=== PATIENT | female | born 1960 | race Two or more races ===

== ENCOUNTER 2017-12-15 21:28 | Inpatient (IN) | payer MEDICAID, OTHER ==
[~2017-12-15] VITALS: Ht 175.3 cm; Wt 163.3 kg
[~2017-12-15 21:28] MED LIST: ABILIFY20 MG ORAL; AMLODIPINE BESYL5 MG ORAL; ATORVASTATIN CA40 MG ORAL; FEROSUL325 M1 PO; FLUOXETINE HCL20 MG ORAL; LATUDA40 MG PO; LEVOTHYROXINE112 MCG ORAL; LEVOTHYROXINE75 MCG ORAL; LIPITOR40 MG ORAL; SERTRALINE HCL25 MG ORAL
[2017-12-15] MEDS ORDERED: Albuterol/Ipratropium 3ml neb HHN ONE (22:45)
[2017-12-15 23:28] LABS: HEMATOCRIT 36.9 % (37.0-47.0); HEMOGLOBIN 12.1 G/DL (12.0-16.0); MEAN CORPUSCULAR VOLUME 87 FL (80-99); PLATELET COUNT 67 K/UL (150-450); RED BLOOD COUNT 4.24 M/UL (4.20-5.40); RED CELL DISTRIBUTION WIDTH 13.8 % (11.6-14.8); WHITE BLOOD COUNT 9.7 K/UL (4.8-10.8)
[2017-12-16] VITALS (7 sets, daily range): BP systolic 121–149; BP diastolic 67–89
[2017-12-16] LABS: ANION GAP 4 mmol/L (5-15); BLOOD UREA NITROGEN 27 mg/dL (7-18); CALCIUM 8.5 MG/DL (8.5-10.1); CARBON DIOXIDE 32 MMOL/L (21-32); CHLORIDE 106 MMOL/L (98-107); CREATININE 0.9 MG/DL (0.55-1.30); SODIUM 142 MMOL/L (136-145)
[2017-12-16] MEDS ORDERED: Norco 5mg/325mg tab ORAL ONE
[2017-12-16 00:05] LABS: ALANINE AMINOTRANSFERASE 21 U/L (12-78); ALBUMIN/GLOBULIN RATIO 0.7 (1.0-2.7); ALKALINE PHOSPHATASE 115 U/L (46-116); ASPARTATE AMINO TRANSFERASE 22 U/L (15-37); BILIRUBIN,TOTAL 0.3 MG/DL (0.2-1.0)
--- NOTE | 2017-12-16 00:34 | Emergency Room Report ---
History of Present Illness General Chief Complaint: Lower Extremity Injury Source: Medical Record, EMS Present Illness HPI Patient is a 57-year-old female who presented after increased difficulty breathing and right leg pain. The patient noted have recent fall. She had prior history of morbid obesity. The patient had the been noted to have increased pain and right ankle. The patient had a prior history of psychiatric disease. She denies any numbness or tingling to her extremities. The pain is worse with movement. Allergies: Coded Allergies: No Known Allergies (Unverified , 11/01/15) Patient History Last Menstrual Period: n/a Reviewed Nursing Documentation: PMH: Agreed; PSxH: Agreed Nursing Documentation-PMH Hx Hypertension: Yes Hx Cancer: No Hx Gastrointestinal Problems: No History Of Psychiatric Problem: Yes Hx Neurological Problems: No Review of Systems All Other Systems: negative except mentioned in HPI Physical Exam Vital Signs Date Time Temp Pulse Resp B/P (MAP) Pulse Ox O2 Delivery O2 Flow Rate FiO2 12/15/17 21:24 97.9 68 16 126/77 92 Nasal Cannula 3.0 97.9 12/15/17 23:12 32 Sp02 EP Interpretation: reviewed, normal General Appearance: normal inspection, alert, GCS 15, obese, Chronically Ill Head: atraumatic ENT: normal ENT inspection, hearing grossly normal, normal voice Neck: normal inspection, full range of motion, supple, no bony tend Respiratory: normal inspection, no retraction, wheezing Cardiovascular #1: regular rate, rhythm, edema Gastrointestinal: normal inspection, normal bowel sounds, non tender, soft, no guarding, no hernia Genitourinary: no CVA tenderness Musculoskeletal: normal inspection, back normal, normal range of motion Neurologic: normal inspection, alert, oriented x3, responsive, inbound sales advisor III-XII nml as tested, speech normal Psychiatric: normal inspection, judgement/insight normal, mood/affect normal Skin: normal inspection, normal color, no rash Medical Decision Making Diagnostic Impression: Primary Impression: COPD (chronic obstructive pulmonary disease) Additional Impressions: Morbid obesity Fibula fracture Psychiatric disorder ER Course Patient presented for fall as well as difficulty breathing. Patient was noted to have right ankle pain. Differential diagnoses included was not limited to myocardial infarction, COPD, sleep apnea, right heart failure among others. Because of complexity of patient's case laboratory testing and imaging studies were ordered. The x-ray imaging of the right ankle 3 views interpreted by me showed minimally displaced right fibular fracture patient was placed in a splint. Patient was given oral pain medications.Patient given breathing treatments for the moderate difficulty breathing.The patient was noted to have O2 saturation of 92% on [address] Jh Coffman was contacted for inpatient management due to panel physician. Dr. Robb Wallace was contacted for Orthopedic consult. Patient fracture appears to be stable after splinting. Patient appears to be neurovascularly intact. Labs Test 12/15/17 23:17 White Blood Count 9.7 K/UL (4.8-10.8) Red Blood Count 4.24 M/UL (4.20-5.40) Hemoglobin 12.1 G/DL (12.0-16.0) Hematocrit 36.9 % (37.0-47.0) Mean Corpuscular Volume 87 FL (80-99) Mean Corpuscular Hemoglobin 28.5 PG (27.0-31.0) Mean Corpuscular Hemoglobin Concent 32.8 G/DL (32.0-36.0) Red Cell Distribution Width 13.8 % (11.6-14.8) Platelet Count 67 K/UL (150-450) Mean Platelet Volume 8.4 FL (6.5-10.1) Neutrophils (%) (Auto) % (45.0-75.0) Lymphocytes (%) (Auto) % (20.0-45.0) Monocytes (%) (Auto) % (1.0-10.0) Eosinophils (%) (Auto) % (0.0-3.0) Basophils (%) (Auto) % (0.0-2.0) Prothrombin Time 10.5 SEC (9.30-11.50) Prothromb Time International Ratio 1.0 (0.9-1.1) Activated Partial Thromboplast Time 149 SEC (23-33) Sodium Level 142 MMOL/L (136-145) Potassium Level 4.0 MMOL/L (3.5-5.1) Chloride Level 106 MMOL/L (98-107) Carbon Dioxide Level 32 MMOL/L (21-32) Anion Gap 4 mmol/L (5-15) Blood Urea Nitrogen 27 mg/dL (7-18) Creatinine 0.9 MG/DL (0.55-1.30) Estimat Glomerular Filtration Rate > 60 mL/min (>60) Glucose Level 89 MG/DL (74-106) Calcium Level 8.5 MG/DL (8.5-10.1) Total Bilirubin 0.3 MG/DL (0.2-1.0) Aspartate Amino Transf (AST/SGOT) 22 U/L (15-37) Alanine Aminotransferase (ALT/SGPT) 21 U/L (12-78) Alkaline Phosphatase 115 U/L (46-116) Total Protein 7.6 G/DL (6.4-8.2) Albumin 3.0 G/DL (3.4-5.0) Globulin 4.6 g/dL Albumin/Globulin Ratio 0.7 (1.0-2.7) Last Vital Signs Date Time Temp Pulse Resp B/P (MAP) Pulse Ox O2 Delivery O2 Flow Rate FiO2 12/15/17 23:22 68 18 97 Nasal Cannula 3.0 32 12/15/17 21:24 97.9 126/77 97.9 Status: unchanged Disposition: ADMITTED INPATIENT Condition: Stable Referrals: ROBB CHAMBERLAIN (PCP) Niko Garcia MD Dec 16, 2017 00:33
[2017-12-16] MEDS ORDERED: AMLODIPINE BESY10 MG ORAL (01:19)
[2017-12-16] MEDS ORDERED: SYNTHROID100 MCG ORAL (01:19)
[2017-12-16] MEDS ORDERED: RISPERDAL2 MG ORAL (01:19)
[2017-12-16] MEDS ORDERED: Albuterol/Ipratropium 3ml neb HHN PRN (07:00)
[2017-12-16] MEDS ORDERED: ARIPiprazole 10mg tab ORAL SCH (09:00)
[2017-12-16] MEDS: Norco 5mg/325mg tab ORAL PRN ×3 (09:17→22:08)
--- NOTE | 2017-12-16 11:10 | Diagnostic Imaging Report ---
Indication: Shortness of breath Technique: XRAY Chest 1v Comparison: 02/17/2017 FINDINGS/IMPRESSION: Severely limited exam which is markedly underpenetrated. Exam is almost nondiagnostic. Cardiomegaly appears stable. Question pulmonary vascular congestion/mild fluid overload. Repeat exam recommended. Study obtained via the emergency department however patient admitted to the hospital at time of dictation of the final report.
--- NOTE | 2017-12-16 11:19 | Diagnostic Imaging Report ---
Indication: Pain Technique: XRAY Ankle Compl Min 3v R Comparison: None Findings: There is an acute, mildly comminuted and mildly displaced fracture of the distal fibula. There is a subtle lucency of the medial aspect of the distal tibia seen only on frontal view without associated cortical break. This is likely artifactual. Ankle mortise appears intact on these nonstress views. There is bimalleolar soft tissue swelling, more pronounced laterally. No radio opaque foreign body identified. No appreciable ankle joint effusion. There are small plantar and dorsal calcaneal enthesophytes. IMPRESSION: Acute fracture of the distal fibula. Small lucency through the medial malleolus seen only on frontal view without associated definite cortical break, possibly artifact or very subtle nondisplaced fracture. Consider CT. Study obtained via the emergency department however patient admitted to the hospital at time of dictation of the final report. Findings of the final report discussed with the patient's treating nurse on 3E. via telephone conversation approximately 11:00 on 12/16/2017.
--- NOTE | 2017-12-16 13:31 | Consultation ---
Consult Note Consult Note Patient seen and evaluated. Right Ankle fracture with none displaced fibular fracture. In a well padded splint. None surgical treatment, cast immobilization for 4 weeks. Please arrange for follow up with [place] care physician for ankle fracture on outpatient bases. Current splint well fitted. Thank you Yo Wallace MD Dec 16, 2017 13:31
[2017-12-16] MEDS: Sertraline 50mg tab ORAL SCH (14:14)
--- NOTE | 2017-12-16 14:26 | Consultation ---
History of Present Illness General Date patient seen: Dec 17, 2017 Chief Complaint: Lower Extremity Injury Present Illness HPI 57-year-old female with morbid obesity, COPD, psychiatric disorder who presented after increased difficulty breathing and right leg pain after a recent fall. She denies any numbness or tingling to her extremities. The pain is worse with movement. she was diagnosed to have acute fibular fracture. she also had increasing shortness of breath Allergies: Coded Allergies: No Known Allergies (Unverified , 11/01/15) Medication History Scheduled Amlodipine Besylate* (Amlodipine Besylate*), 5 MG ORAL DAILY, (Reported) Amlodipine Besylate* (Amlodipine Besylate*), 5 MG ORAL DAILY, (Reported) Amlodipine Besylate* (Amlodipine Besylate*), 10 MG ORAL DAILY, (Reported) Aripiprazole* (Abilify*), 30 MG ORAL DAILY, (Reported) Aripiprazole* (Abilify*), 20 MG ORAL DAILY, (Reported) Aripiprazole* (Abilify*), 20 MG ORAL DAILY, (Reported) Atorvastatin Calcium* (Lipitor*), 40 MG ORAL BEDTIME, (Reported) Atorvastatin Calcium* (Atorvastatin Calcium*), 40 MG ORAL BEDTIME, (Reported) Ferrous Sulfate (Ferosul), 325 MG PO DAILY, (Reported) Fluoxetine Hcl* (Fluoxetine Hcl*), 20 MG ORAL DAILY, (Reported) Fluoxetine Hcl* (Fluoxetine Hcl*), 20 MG ORAL DAILY, (Reported) Levothyroxine Sodium* (Levothyroxine Sodium*), 75 MCG ORAL DAILY, (Reported) Levothyroxine Sodium* (Levothyroxine Sodium*), 100 MCG ORAL DAILY, (Reported) Levothyroxine Sodium* (Synthroid*), 200 MCG ORAL DAILY, (Reported) Risperidone* (Risperdal*), 2 MG ORAL DAILY, (Reported) Sertraline Hcl* (Sertraline Hcl*), 100 MG ORAL DAILY, (Reported) Miscellaneous Medications Lurasidone Hcl (Latuda), 40 MG PO, (Reported) Patient History Healthcare decision maker Resuscitation status Full Code Advanced Directive on File Past Medical/Surgical History Past Medical/Surgical History: (1) HTN (hypertension) (2) Hypothyroidism (3) Depression (4) Bipolar disorder (5) Psychiatric disorder (6) COPD (chronic obstructive pulmonary disease) Review of Systems All Other Systems: negative except mentioned in HPI Physical Exam General Appearance: WD/WN, no apparent distress Lines, tubes and drains: central line Neck: non-tender, normal alignment Respiratory/Chest: chest wall non-tender, lungs clear, decreased breath sounds Cardiovascular/Chest: normal peripheral pulses, normal rate Abdomen: normal bowel sounds Genitourinary/Rectal: normal genital exam Extremities: normal range of motion Last 24 Hour Vital Signs Date Time Temp Pulse Resp B/P (MAP) Pulse Ox O2 Delivery O2 Flow Rate FiO2 12/16/17 12:00 98.5 70 19 128/74 95 Nasal Cannula 2.0 98.5 12/16/17 10:16 97.9 12/16/17 09:15 66 140/67 12/16/17 07:51 97.9 66 19 140/67 96 Nasal Cannula 2.0 97.9 12/16/17 04:30 98.1 84 20 122/77 94 Nasal Cannula 2.0 98.1 12/16/17 02:20 97.9 84 20 149/80 95 Nasal Cannula 2.0 97.9 12/16/17 02:06 97.9 90 18 132/89 97 Nasal Cannula 3.0 32 97.9 12/16/17 01:07 97.9 90 18 132/89 97 Nasal Cannula 3.0 32 97.9 12/15/17 23:22 68 18 97 Nasal Cannula 3.0 32 12/15/17 23:12 70 18 94 Nasal Cannula 3.0 32 12/15/17 23:12 70 18 Nasal Cannula 3.0 32 12/15/17 21:24 97.9 68 16 126/77 92 Nasal Cannula 3.0 97.9 Intake and Output 12/15/17 12/16/17 18:59 06:59 Intake Total 200 ml Balance 200 ml Intake Oral 200 ml # Voids 2 Laboratory Tests Test 12/15/17 23:17 White Blood Count 9.7 K/UL (4.8-10.8) Red Blood Count 4.24 M/UL (4.20-5.40) Hemoglobin 12.1 G/DL (12.0-16.0) Hematocrit 36.9 % (37.0-47.0) L Mean Corpuscular Volume 87 FL (80-99) Mean Corpuscular Hemoglobin 28.5 PG (27.0-31.0) Mean Corpuscular Hemoglobin Concent 32.8 G/DL (32.0-36.0) Red Cell Distribution Width 13.8 % (11.6-14.8) Platelet Count 67 K/UL (150-450) L Mean Platelet Volume 8.4 FL (6.5-10.1) Neutrophils (%) (Auto) % (45.0-75.0) Lymphocytes (%) (Auto) % (20.0-45.0) Monocytes (%) (Auto) % (1.0-10.0) Eosinophils (%) (Auto) % (0.0-3.0) Basophils (%) (Auto) % (0.0-2.0) Prothrombin Time 10.5 SEC (9.30-11.50) Prothromb Time International Ratio 1.0 (0.9-1.1) Activated Partial Thromboplast Time 149 SEC (23-33) H Sodium Level 142 MMOL/L (136-145) Potassium Level 4.0 MMOL/L (3.5-5.1) Chloride Level 106 MMOL/L (98-107) Carbon Dioxide Level 32 MMOL/L (21-32) Anion Gap 4 mmol/L (5-15) L Blood Urea Nitrogen 27 mg/dL (7-18) H Creatinine 0.9 MG/DL (0.55-1.30) Estimat Glomerular Filtration Rate > 60 mL/min (>60) Glucose Level 89 MG/DL (74-106) Calcium Level 8.5 MG/DL (8.5-10.1) Total Bilirubin 0.3 MG/DL (0.2-1.0) Aspartate Amino Transf (AST/SGOT) 22 U/L (15-37) Alanine Aminotransferase (ALT/SGPT) 21 U/L (12-78) Alkaline Phosphatase 115 U/L (46-116) Total Protein 7.6 G/DL (6.4-8.2) Albumin 3.0 G/DL (3.4-5.0) L Globulin 4.6 g/dL Albumin/Globulin Ratio 0.7 (1.0-2.7) L Height (Feet): 5 Height (Inches): 9.00 Weight (Pounds): 360 Medications Current Medications Medications (Trade) Dose Ordered Sig/Harish Route PRN Reason Start Time Stop Time Status Last Admin Dose Admin Acetaminophen (Tylenol) 650 mg Q6H PRN ORAL Mild Pain/Temp > 100.5 12/16/17 07:00 01/15/18 06:59 Acetaminophen/ Hydrocodone Bitart ([place] 5/325) 1 tab Q4H PRN ORAL Moderate Pain (Pain Scale 4-6) 12/16/17 07:00 12/23/17 06:59 12/16/17 09:17 Albuterol/ Ipratropium (Albuterol/ Ipratropium) 3 ml Q4H PRN HHN Shortness of Breath 12/16/17 07:00 12/21/17 06:59 Amlodipine Besylate (Norvasc) 5 mg DAILY ORAL 12/16/17 09:00 01/15/18 08:59 12/16/17 09:15 Aripiprazole (Abilify) 20 mg DAILY ORAL 12/16/17 09:00 01/15/18 08:59 12/16/17 09:15 Atorvastatin Calcium (Lipitor) 40 mg BEDTIME ORAL 12/16/17 21:00 01/15/18 20:59 Levothyroxine Sodium (Synthroid) 75 mcg ACBREAKFAST ORAL 12/17/17 06:30 01/16/18 06:29 Morphine Sulfate (Morphine Sulfate) 4 mg Q4H PRN IVP Severe Pain (Pain Scale 7-10) 12/16/17 07:00 12/23/17 06:59 Ondansetron HCl (Zofran) 4 mg Q4H PRN IVP Nausea & Vomiting 12/16/17 07:00 01/15/18 06:59 Risperidone (RisperDAL) 2 mg DAILY ORAL 12/16/17 09:00 01/15/18 08:59 12/16/17 09:15 Sertraline HCl (Zoloft) 100 mg DAILY ORAL 12/16/17 13:00 01/15/18 12:59 12/16/17 14:14 Assessment/Plan Problem List: (1) COPD (chronic obstructive pulmonary disease) ICD Codes: J44.9 - Chronic obstructive pulmonary disease, unspecified SNOMED: 86866851 (2) Fibula fracture ICD Codes: S82.409A - Unspecified fracture of shaft of unspecified fibula, initial encounter for closed fracture SNOMED: 54815543 (3) Morbid obesity ICD Codes: E66.01 - Morbid (severe) obesity due to excess calories SNOMED: 789585082 (4) Psychiatric disorder ICD Codes: F99 - Mental disorder, not otherwise specified SNOMED: 95059162, 727681308 (5) Lives in assisted living facility ICD Codes: Z59.3 - Problems related to living in residential institution SNOMED: 709418018 Assessment/Plan respiratory treatment titrate fio2 to sat of 92% ortho f/u dvt prophylaxis Regla Carlin MD Dec 16, 2017 14:25
--- NOTE | 2017-12-16 16:38 | Consultation ---
History of Present Illness General Date patient seen: Dec 16, 2017 Chief Complaint: Lower Extremity Injury Present Illness HPI 57-year-old female, with hx of depression and schizophrenia who presented after increasing difficulty breathing and right leg pain. The pt c/o sob. The pt is calm and cooperative and has no behavioral issues. the pt is depressed and anxious. the pt does not endorse psychotic sxs. the pt is Sammar[place] speaking. Allergies: Coded Allergies: No Known Allergies (Unverified , 11/01/15) Medication History Scheduled Amlodipine Besylate* (Amlodipine Besylate*), 5 MG ORAL DAILY, (Reported) Amlodipine Besylate* (Amlodipine Besylate*), 5 MG ORAL DAILY, (Reported) Amlodipine Besylate* (Amlodipine Besylate*), 10 MG ORAL DAILY, (Reported) Aripiprazole* (Abilify*), 30 MG ORAL DAILY, (Reported) Aripiprazole* (Abilify*), 20 MG ORAL DAILY, (Reported) Aripiprazole* (Abilify*), 20 MG ORAL DAILY, (Reported) Atorvastatin Calcium* (Lipitor*), 40 MG ORAL BEDTIME, (Reported) Atorvastatin Calcium* (Atorvastatin Calcium*), 40 MG ORAL BEDTIME, (Reported) Ferrous Sulfate (Ferosul), 325 MG PO DAILY, (Reported) Fluoxetine Hcl* (Fluoxetine Hcl*), 20 MG ORAL DAILY, (Reported) Fluoxetine Hcl* (Fluoxetine Hcl*), 20 MG ORAL DAILY, (Reported) Levothyroxine Sodium* (Levothyroxine Sodium*), 75 MCG ORAL DAILY, (Reported) Levothyroxine Sodium* (Levothyroxine Sodium*), 100 MCG ORAL DAILY, (Reported) Levothyroxine Sodium* (Synthroid*), 200 MCG ORAL DAILY, (Reported) Risperidone* (Risperdal*), 2 MG ORAL DAILY, (Reported) Sertraline Hcl* (Sertraline Hcl*), 100 MG ORAL DAILY, (Reported) Miscellaneous Medications Lurasidone Hcl (Latuda), 40 MG PO, (Reported) Patient History Limited by: medical condition History Provided By: Patient, Medical Record, PMD Healthcare decision maker Resuscitation status Full Code Advanced Directive on File Past Medical/Surgical History Past Medical/Surgical History: (1) Abdominal pain (2) Bipolar disorder (3) Depression (4) Hypothyroidism (5) HTN (hypertension) (6) HLD (hyperlipidemia) (7) Atypical chest pain (8) COPD (chronic obstructive pulmonary disease) (9) Morbid obesity (10) Psychiatric disorder (11) Fibula fracture Review of Systems Psychiatric: Reports: prior hx, anxiety, depressed feelings, emotional problems Physical Exam General Appearance: no apparent distress, alert, obese Neurologic: oriented x 3, responsive, depressed affect Last 24 Hour Vital Signs Date Time Temp Pulse Resp B/P (MAP) Pulse Ox O2 Delivery O2 Flow Rate FiO2 12/16/17 16:00 97.9 74 18 127/75 94 Nasal Cannula 2.0 97.9 12/16/17 12:00 98.5 70 19 128/74 95 Nasal Cannula 2.0 98.5 12/16/17 10:16 97.9 12/16/17 09:15 66 140/67 12/16/17 07:51 97.9 66 19 140/67 96 Nasal Cannula 2.0 97.9 12/16/17 04:30 98.1 84 20 122/77 94 Nasal Cannula 2.0 98.1 12/16/17 02:20 97.9 84 20 149/80 95 Nasal Cannula 2.0 97.9 12/16/17 02:06 97.9 90 18 132/89 97 Nasal Cannula 3.0 32 97.9 12/16/17 01:07 97.9 90 18 132/89 97 Nasal Cannula 3.0 32 97.9 12/15/17 23:22 68 18 97 Nasal Cannula 3.0 32 12/15/17 23:12 70 18 94 Nasal Cannula 3.0 32 12/15/17 23:12 70 18 Nasal Cannula 3.0 32 12/15/17 21:24 97.9 68 16 126/77 92 Nasal Cannula 3.0 97.9 Intake and Output 12/15/17 12/16/17 19:00 07:00 Intake Total 200 ml Balance 200 ml Intake Oral 200 ml # Voids 2 Laboratory Tests Test 12/15/17 23:17 White Blood Count 9.7 K/UL (4.8-10.8) Red Blood Count 4.24 M/UL (4.20-5.40) Hemoglobin 12.1 G/DL (12.0-16.0) Hematocrit 36.9 % (37.0-47.0) L Mean Corpuscular Volume 87 FL (80-99) Mean Corpuscular Hemoglobin 28.5 PG (27.0-31.0) Mean Corpuscular Hemoglobin Concent 32.8 G/DL (32.0-36.0) Red Cell Distribution Width 13.8 % (11.6-14.8) Platelet Count 67 K/UL (150-450) L Mean Platelet Volume 8.4 FL (6.5-10.1) Neutrophils (%) (Auto) % (45.0-75.0) Lymphocytes (%) (Auto) % (20.0-45.0) Monocytes (%) (Auto) % (1.0-10.0) Eosinophils (%) (Auto) % (0.0-3.0) Basophils (%) (Auto) % (0.0-2.0) Prothrombin Time 10.5 SEC (9.30-11.50) Prothromb Time International Ratio 1.0 (0.9-1.1) Activated Partial Thromboplast Time 149 SEC (23-33) H Sodium Level 142 MMOL/L (136-145) Potassium Level 4.0 MMOL/L (3.5-5.1) Chloride Level 106 MMOL/L (98-107) Carbon Dioxide Level 32 MMOL/L (21-32) Anion Gap 4 mmol/L (5-15) L Blood Urea Nitrogen 27 mg/dL (7-18) H Creatinine 0.9 MG/DL (0.55-1.30) Estimat Glomerular Filtration Rate > 60 mL/min (>60) Glucose Level 89 MG/DL (74-106) Calcium Level 8.5 MG/DL (8.5-10.1) Total Bilirubin 0.3 MG/DL (0.2-1.0) Aspartate Amino Transf (AST/SGOT) 22 U/L (15-37) Alanine Aminotransferase (ALT/SGPT) 21 U/L (12-78) Alkaline Phosphatase 115 U/L (46-116) Total Protein 7.6 G/DL (6.4-8.2) Albumin 3.0 G/DL (3.4-5.0) L Globulin 4.6 g/dL Albumin/Globulin Ratio 0.7 (1.0-2.7) L Height (Feet): 5 Height (Inches): 9.00 Weight (Pounds): 360 Medications Current Medications Medications (Trade) Dose Ordered Sig/Harish Route PRN Reason Start Time Stop Time Status Last Admin Dose Admin Acetaminophen (Tylenol) 650 mg Q6H PRN ORAL Mild Pain/Temp > 100.5 12/16/17 07:00 01/15/18 06:59 Acetaminophen/ Hydrocodone Bitart ([place] 5/325) 1 tab Q4H PRN ORAL Moderate Pain (Pain Scale 4-6) 12/16/17 07:00 12/23/17 06:59 12/16/17 09:17 Albuterol/ Ipratropium (Albuterol/ Ipratropium) 3 ml Q4H PRN HHN Shortness of Breath 12/16/17 07:00 12/21/17 06:59 Amlodipine Besylate (Norvasc) 5 mg DAILY ORAL 12/16/17 09:00 01/15/18 08:59 12/16/17 09:15 Aripiprazole (Abilify) 20 mg DAILY ORAL 12/16/17 09:00 01/15/18 08:59 12/16/17 09:15 Atorvastatin Calcium (Lipitor) 40 mg BEDTIME ORAL 12/16/17 21:00 01/15/18 20:59 Levothyroxine Sodium (Synthroid) 75 mcg ACBREAKFAST ORAL 12/17/17 06:30 01/16/18 06:29 Morphine Sulfate (Morphine Sulfate) 4 mg Q4H PRN IVP Severe Pain (Pain Scale 7-10) 12/16/17 07:00 12/23/17 06:59 Ondansetron HCl (Zofran) 4 mg Q4H PRN IVP Nausea & Vomiting 12/16/17 07:00 01/15/18 06:59 Risperidone (RisperDAL) 2 mg DAILY ORAL 12/16/17 09:00 01/15/18 08:59 12/16/17 09:15 Sertraline HCl (Zoloft) 100 mg DAILY ORAL 12/16/17 13:00 01/15/18 12:59 12/16/17 14:14 Assessment/Plan Status: stable Assessment/Plan Bipolar d/o schizophrenia by hx dc Abilify cont zoloft pt was provided ro/Kalpana Hummel MD Dec 16, 2017 16:38
--- NOTE | 2017-12-16 16:45 | Consultation ---
DATE OF CONSULTATION: 12/16/2017 ORTHOPEDIC CONSULTATION CONSULTING PHYSICIAN: Yo Wallace M.D. REQUESTING PHYSICIAN: Jh Coffman M.D. REASON FOR CONSULTATION: Right ankle fracture. BRIEF HISTORY: The patient is a 57-year-old female, who presented after increasing difficulty breathing and right leg pain. She was noted to have a recent fall and she has morbid obesity. She was admitted to the hospital apparently due to coagulopathy and shortness of breath. X-rays of the right ankle showed a minimally displaced fibular fracture. Orthopedic consultation was obtained. PAST MEDICAL HISTORY: Significant for history of COPD, morbid obesity, psychiatric disorder, possible coagulopathy. PAST SURGICAL HISTORY: None available. MEDICATIONS: Please see chart. ALLERGIES: No known drug allergies. SOCIAL HISTORY: She has history of psychiatric issues. She was ambulatory prior to this fall. REVIEW OF SYSTEMS: Noncontributory. PHYSICAL EXAMINATION: GENERAL: Examination of the patient today reveals she is a pleasant lady. She is in bed on 3 L nasal cannula oxygen. EXTREMITIES: Examination of her ankle revealed that she has got well-padded splint. She is able to wiggle her toes. Splint is well padded. There is no neurological compromise at this point. X-RAYS: X-ray of the right ankle was reviewed. There is a spiral fibular fracture which is minimally displaced. The mortise appears to be intact. IMPRESSION: Right fibular fracture with intact mortise, isolated, with minimal displacement and no shortening. PLAN: At this time, I had discussion with the patient and explained to her my findings. I recommend nonoperative treatment in a splint for about a week and then cast immobilization for 3 to 4 weeks after. At this time, her medical condition is more urgent and this is managed by Dr. Coffman and his team. The patient can be discharged and followed up as an outpatient basis with her [facility] [place] physician for further treatment. There is no need for surgery for this patient at this time. Thank you for allowing me to participate in the care of this patient. Yo Wallace M.D. DR: Floyd JOB#: [id number] CC: JEF
--- NOTE | 2017-12-16 18:00 | History and Physical Report ---
DATE OF ADMISSION: 12/15/2017 CHIEF COMPLAINT: The patient is a 57-year-old female, who presents with chief complaint of right leg pain. HISTORY OF PRESENT ILLNESS: The patient is a resident of [facility]. The patient apparently fell a couple weeks ago at the facility. The patient has had increasing pain of the right lower leg. The patient also has shortness of breath. The patient presented to [facility] emergency room. The patient was found to have nondisplaced right fibular fracture distally. The patient is admitted with right distal fibular fracture. PAST MEDICAL HISTORY: Significant for 1. Hypertension. 2. Hypercholesterolemia. 3. Hypothyroidism. 4. Bipolar depression. 5. Obesity. PAST SURGICAL HISTORY: The patient denies. CURRENT MEDICATIONS: 1. Atorvastatin 40 mg p.o. daily. 2. Amlodipine 10 mg p.o. daily. 3. Levoxyl 200 mcg p.o. daily. 4. Risperdal 2 mg p.o. every evening. 5. Latuda 40 mg p.o. at bedtime. 6. Abilify 20 mg p.o. at bedtime. 7. Zoloft 100 mg p.o. daily. ALLERGIES: No known drug allergies. SOCIAL HISTORY: The patient is single. The patient denies tobacco or alcohol use. REVIEW OF SYSTEMS: CONSTITUTIONAL: The patient denies weight loss or weight gain. The patient denies fevers or chills. HEENT: The patient denies ear or throat pain. The patient denies headache. CARDIOVASCULAR: The patient denies palpitations or chest pain. CHEST: The patient denies wheezing or shortness of breath. ABDOMEN: The patient denies nausea, vomiting, diarrhea, or constipation. GENITOURINARY: The patient denies dysuria or increased frequency of urination. NEUROMUSCULAR: The patient complains of right lower leg pain as above. The patient denies seizures or generalized weakness. PHYSICAL EXAMINATION: GENERAL: The patient is a well-developed and well-nourished obese female, in no apparent distress. VITAL SIGNS: Temperature 97.9 degrees, respirations 20, pulse 84, and blood pressure 149/80. HEENT: Eyes, pupils equal and responsive to light and accommodation. Extraocular movements are intact. NECK: Supple without lymphadenopathy. CHEST: Lungs are clear to auscultation bilaterally without wheezes or rales. CARDIOVASCULAR: Regular rhythm and rate. S1 and S2 are normal without murmurs, rubs, or gallops. ABDOMEN: Soft, nontender, nondistended. Positive bowel sounds. No evidence of hepatosplenomegaly. Currently, no rebound or guarding noted. EXTREMITIES: Negative for clubbing, cyanosis, or edema. RECTAL/GENITAL: Refused. NEUROLOGIC: Cranial nerves II through XII are grossly intact without focal deficits. Motor strength is 5/5 bilaterally. Deep tendon reflexes are 2+ plantar. LABORATORY AND DIAGNOSTIC DATA: WBC 9.7, hemoglobin 12.1, hematocrit 36.9 and platelets 67,000. Sodium 142, potassium 4.0, chloride 106, CO2 32, BUN 27, creatinine 0.9, and glucose 89. X-ray of the right ankle revealed nondisplaced fracture of the distal fibula. ASSESSMENT: This is a 57-year-old female 1. Nondisplaced fracture of the right fibula. 2. Hypertension. 3. Hypercholesterolemia. 4. Hypothyroidism. 5. Bipolar depression. 6. Obesity. TREATMENT: 1. Nondisplaced fracture of the right fibula. An Orthopedic consultation has been with Dr. Wallace. We will follow recommendations. The patient is currently on a soft cast. 2. Hypertension. Continue amlodipine as above. 3. Hypercholesteremia. Continue Lipitor as above. 4. Hypothyroidism. Continue Synthroid as above. 5. Bipolar depression. Continue Abilify, Risperdal, Latuda and Zoloft as above. 6. Morbid obesity. Dyllan Johnson M.D. DR: JUSTINE JOB#: [id number] CC:
[2017-12-16] MEDS: Atorvastatin 20mg tab ORAL SCH (21:15)
--- NOTE | 2017-12-16 22:15 | Consultation ---
DATE OF CONSULTATION: 12/16/2017 HEMATOLOGY/ONCOLOGY CONSULTATION CONSULTING PHYSICIAN: Leroy Pedraza M.D. REQUESTING PHYSICIAN: Jh Coffman M.D. REASON FOR CONSULTATION: Evaluation of new onset thrombocytopenia. IDENTIFYING DATA: Dear Dr. Coffman, The patient is a pleasant 57-year-old female with past medical history significant for COPD, morbid obesity, possible coagulopathy, INR, which is noted to be 5 and PTT of 129. The patient has a history, which is significant for difficulty breathing, noted to have a recent fall, morbid obesity, admitted to the hospital for evaluation of coagulopathy. X-ray of the right ankle showed minimally displaced ankle fracture. Orthopedic Surgery was consulted for further evaluation and treatment. The patient to be followed up as an outpatient for further treatment. No need for surgery at this time per Orthopedic Surgery. Hematology Service was consulted for evaluation and treatment. PAST MEDICAL HISTORY: COPD, morbid obesity, psychiatric disorder, and possible coagulopathy. PAST SURGICAL HISTORY: None reported. MEDICATIONS: Reviewed. ALLERGIES: No known drug allergies. SOCIAL HISTORY: No alcohol, tobacco, or illicit drug use. FAMILY HISTORY: Noncontributory. REVIEW OF SYSTEMS: CONSTITUTIONAL: No fevers, chills, or night sweats. SKIN: No rashes, bumps, or itching. HEENT: No headache, hearing or vision changes. BREASTS: No lumps, pain, or discharge. PULMONARY: No cough, sputum, or shortness of breath. GASTROINTESTINAL: No nausea, vomiting, or diarrhea. GENITOURINARY: No dysuria, frequency, or urgency. MUSCULOSKELETAL: No muscle, joint swelling, or trauma. PHYSICAL EXAMINATION: VITAL SIGNS: Reviewed. GENERAL: No distress. PULMONARY: Decreased breath sounds. CARDIOVASCULAR: Regular rate. No S3 or S4. ABDOMEN: Soft, nontender, and nondistended. EXTREMITIES: A 1+ edema. LABORATORY AND DIAGNOSTIC DATA: Labs have been reviewed. Platelet count 67,000. PTT of 149. ASSESSMENT AND RECOMMENDATION: 1. Coagulopathy. PTT of 149. We need to check whether this is accurate. PTT has been ordered. study has been ordered as well, potentially it is underlying vitamin K insufficiency. 2. Thrombocytopenia. At this time, we need to platelet count due to reactive process in addition to pseudothrombocytopenia. Obtain hepatitis panel, HIV, and ultrasound of the abdomen. 3. Hypertension. Systolic blood pressure goal is less than 140. 4. Ankle fracture. Outpatient management. The patient has HMO insurance. 5. Azotemia, dehydration. I appreciate the consultation. Leroy Pedraza M.D. DR: SAUL JOB#: [id number] CC:
[2017-12-17] VITALS: BP 146/79
[2017-12-17 04:00] VITALS: BP 128/70
[2017-12-17] MEDS: Norco 5mg/325mg tab ORAL PRN ×2 (07:22→15:25)
[2017-12-17 07:23] LABS: ALANINE AMINOTRANSFERASE 16 U/L (12-78); ALBUMIN 2.6 G/DL (3.4-5.0); ALBUMIN/GLOBULIN RATIO 0.6 (1.0-2.7); ALKALINE PHOSPHATASE 95 U/L (46-116); ANION GAP 3 mmol/L (5-15); ASPARTATE AMINO TRANSFERASE 15 U/L (15-37); BILIRUBIN,TOTAL 0.3 MG/DL (0.2-1.0); BLOOD UREA NITROGEN 17 mg/dL (7-18); CALCIUM 8.2 MG/DL (8.5-10.1); CARBON DIOXIDE 33 MMOL/L (21-32); CHLORIDE 106 MMOL/L (98-107); CREATININE 0.7 MG/DL (0.55-1.30); PHOSPHORUS 3.4 MG/DL (2.5-4.9); POTASSIUM 4.1 MMOL/L (3.5-5.1); SODIUM 142 MMOL/L (136-145)
[2017-12-17 07:25] LABS: BASOPHILS % (AUTO) 1.3 % (0.0-2.0); EOSINOPHILS % (AUTO) 1.4 % (0.0-3.0); LYMPHOCYTES % (AUTO) 24.7 % (20.0-45.0); MEAN CORPUSCULAR VOLUME 88 FL (80-99); NEUTROPHILS % (AUTO) 66.6 % (45.0-75.0); PLATELET COUNT 154 K/UL (150-450); RED BLOOD COUNT 4.18 M/UL (4.20-5.40); RED CELL DISTRIBUTION WIDTH 13.7 % (11.6-14.8); WHITE BLOOD COUNT 7.6 K/UL (4.8-10.8)
[2017-12-17 08:00] VITALS: BP 125/65
[2017-12-17] MEDS: Sertraline 50mg tab ORAL SCH (08:47)
--- NOTE | 2017-12-17 11:40 | General Progress Note ---
Assessment/Plan Status: stable Assessment/Plan 1. Coagulopathy. PTT of 149. --> We need to check whether this is accurate. PTT has been reordered. Results pending. --> potentially it is underlying vitamin K insufficiency. 2. Thrombocytopenia. --> 12/17 platelet count at 154 --> hepatitis panel, HIV are both negative --> US abd: pending. 3. Hypertension. Systolic blood pressure goal is less than 140. 4. Ankle fracture. Outpatient management. The patient has HMO insurance. 5. Azotemia, dehydration. Subjective Date patient seen: Dec 17, 2017 Allergies: Coded Allergies: No Known Allergies (Unverified , 11/01/15) All Systems: reviewed and negative except above Subjective Pt resting in bed. No acute events. Objective Last 24 Hour Vital Signs Date Time Temp Pulse Resp B/P (MAP) Pulse Ox O2 Delivery O2 Flow Rate FiO2 12/17/17 08:47 64 125/65 12/17/17 08:20 98.4 12/17/17 08:00 98.2 64 19 125/65 93 Bi-pap 98.2 12/17/17 07:25 93 Nasal Cannula 3.0 32 12/17/17 07:25 64 18 Nasal Cannula 3.0 32 12/17/17 07:25 Nasal Cannula 3.0 32 12/17/17 05:40 69 20 93 Facial 30 12/17/17 04:00 98.4 70 19 128/70 91 Bi-pap 98.4 12/17/17 03:33 72 17 94 Facial 30 12/17/17 01:07 70 18 93 Facial 30 12/17/17 00:00 98.3 72 18 146/79 91 Nasal Cannula 2.0 98.3 12/16/17 22:27 71 24 93 Facial 30 12/16/17 20:36 77 20 Nasal Cannula 3.0 32 12/16/17 20:36 93 Nasal Cannula 3.0 32 12/16/17 20:36 Nasal Cannula 3.0 32 12/16/17 20:00 98.1 78 18 121/75 92 Nasal Cannula 2.0 98.1 12/16/17 17:54 97.9 12/16/17 16:00 97.9 74 18 127/75 94 Nasal Cannula 2.0 97.9 12/16/17 12:00 98.5 70 19 128/74 95 Nasal Cannula 2.0 98.5 Intake and Output 12/16/17 12/17/17 19:00 07:00 Intake Total 500 ml 100 ml Output Total 4 ml Balance 496 ml 100 ml Intake Oral 500 ml 100 ml Output Urine Total 4 ml # Voids 1 2 Laboratory Tests 12/16/17 19:30: Haptoglobin [Pending], Prothrombin Time 10.4, Prothromb Time International Ratio 1.0, Thyroid Stimulating Hormone (TSH) 4.509H, Heparin-PF4 Antibody Screen [Pending], Hepatitis A IgM Antibody Negative, Hepatitis B Surface Antigen Negative, Hepatitis B Core IgM Antibody Negative, Hepatitis C Antibody < 0.1, HIV (1&2) Antibody Rapid Negative 12/17/17 06:20: White Blood Count 7.6, Red Blood Count 4.18L, Hemoglobin 12.0, Hematocrit 37.0, Mean Corpuscular Volume 88, Mean Corpuscular Hemoglobin 28.7, Mean Corpuscular Hemoglobin Concent 32.5, Red Cell Distribution Width 13.7, Platelet Count 154#, Mean Platelet Volume 7.5, Neutrophils (%) (Auto) 66.6, Lymphocytes (%) (Auto) 24.7, Monocytes (%) (Auto) 6.0, Eosinophils (%) (Auto) 1.4, Basophils (%) (Auto ) 1.3, Sodium Level 142, Potassium Level 4.1, Chloride Level 106, Carbon Dioxide Level 33H, Anion Gap 3L, Blood Urea Nitrogen 17, Creatinine 0.7, Estimat Glomerular Filtration Rate > 60, Glucose Level 83, Calcium Level 8.2L, Phosphorus Level 3.4, Magnesium Level 2.1, Total Bilirubin 0.3, Aspartate Amino Transf (AST/SGOT) 15, Alanine Aminotransferase (ALT/SGPT) 16, Alkaline Phosphatase 95, Total Protein 7.1, Albumin 2.6L, Globulin 4.5, Albumin/Globulin Ratio 0.6L Height (Feet): 5 Height (Inches): 9.00 Weight (Pounds): 360 General Appearance: no apparent distress, alert EENT: PERRL/EOMI Neck: normal alignment Cardiovascular: normal peripheral pulses Respiratory/Chest: no respiratory distress Abdomen: no mass Leroy Pedraza MD Dec 17, 2017 11:40
[2017-12-17 12:00] VITALS: BP 125/70
--- NOTE | 2017-12-17 12:55 | General Progress Note ---
Assessment/Plan Status: stable Assessment/Plan Bipolar d/o schizophrenia by hx cont zoloft pt was provided ro/st Subjective Date patient seen: Dec 17, 2017 Neurologic/Psychiatric: Reports: anxiety, depressed Allergies: Coded Allergies: No Known Allergies (Unverified , 11/01/15) Subjective the pt is lying in bed no behaviors and is cooperative. the pt is tolerating the meds. She is aware that I dc Abilify Objective Last 24 Hour Vital Signs Date Time Temp Pulse Resp B/P (MAP) Pulse Ox O2 Delivery O2 Flow Rate FiO2 12/17/17 12:00 98.1 125/70 (88) 98.1 12/17/17 08:47 64 125/65 12/17/17 08:20 98.4 12/17/17 08:00 98.2 64 19 125/65 93 Bi-pap 98.2 12/17/17 07:25 93 Nasal Cannula 3.0 32 12/17/17 07:25 64 18 Nasal Cannula 3.0 32 12/17/17 07:25 Nasal Cannula 3.0 32 12/17/17 05:40 69 20 93 Facial 30 12/17/17 04:00 98.4 70 19 128/70 91 Bi-pap 98.4 12/17/17 03:33 72 17 94 Facial 30 12/17/17 01:07 70 18 93 Facial 30 12/17/17 00:00 98.3 72 18 146/79 91 Nasal Cannula 2.0 98.3 12/16/17 22:27 71 24 93 Facial 30 12/16/17 20:36 77 20 Nasal Cannula 3.0 32 12/16/17 20:36 93 Nasal Cannula 3.0 32 12/16/17 20:36 Nasal Cannula 3.0 32 12/16/17 20:00 98.1 78 18 121/75 92 Nasal Cannula 2.0 98.1 12/16/17 17:54 97.9 12/16/17 16:00 97.9 74 18 127/75 94 Nasal Cannula 2.0 97.9 Intake and Output 12/16/17 12/17/17 19:00 07:00 Intake Total 500 ml 100 ml Output Total 4 ml Balance 496 ml 100 ml Intake Oral 500 ml 100 ml Output Urine Total 4 ml # Voids 1 2 Laboratory Tests 12/16/17 19:30: Haptoglobin [Pending], Prothrombin Time 10.4, Prothromb Time International Ratio 1.0, Thyroid Stimulating Hormone (TSH) 4.509H, Heparin-PF4 Antibody Screen [Pending], Hepatitis A IgM Antibody Negative, Hepatitis B Surface Antigen Negative, Hepatitis B Core IgM Antibody Negative, Hepatitis C Antibody < 0.1, HIV (1&2) Antibody Rapid Negative 12/17/17 06:20: White Blood Count 7.6, Red Blood Count 4.18L, Hemoglobin 12.0, Hematocrit 37.0, Mean Corpuscular Volume 88, Mean Corpuscular Hemoglobin 28.7, Mean Corpuscular Hemoglobin Concent 32.5, Red Cell Distribution Width 13.7, Platelet Count 154#, Mean Platelet Volume 7.5, Neutrophils (%) (Auto) 66.6, Lymphocytes (%) (Auto) 24.7, Monocytes (%) (Auto) 6.0, Eosinophils (%) (Auto) 1.4, Basophils (%) (Auto ) 1.3, Sodium Level 142, Potassium Level 4.1, Chloride Level 106, Carbon Dioxide Level 33H, Anion Gap 3L, Blood Urea Nitrogen 17, Creatinine 0.7, Estimat Glomerular Filtration Rate > 60, Glucose Level 83, Calcium Level 8.2L, Phosphorus Level 3.4, Magnesium Level 2.1, Total Bilirubin 0.3, Aspartate Amino Transf (AST/SGOT) 15, Alanine Aminotransferase (ALT/SGPT) 16, Alkaline Phosphatase 95, Total Protein 7.1, Albumin 2.6L, Globulin 4.5, Albumin/Globulin Ratio 0.6L Height (Feet): 5 Height (Inches): 9.00 Weight (Pounds): 360 General Appearance: no apparent distress, alert Neurologic: oriented x 3, responsive, depressed affect Kalpana Gann MD Dec 17, 2017 12:55
--- NOTE | 2017-12-17 13:02 | Pulmonology Progress Note ---
Assessment/Plan Problems: (1) COPD (chronic obstructive pulmonary disease) (2) Fibula fracture (3) Morbid obesity (4) Psychiatric disorder (5) Lives in assisted living facility Assessment/Plan improving respiratory treatment titrate fio2 to sat of 92% ortho evaluation reviewed dc planning Subjective ROS Limited/Unobtainable: No Constitutional: Reports: no symptoms HEENT: Repors: no symptoms Respiratory: Reports: no symptoms Allergies: Coded Allergies: No Known Allergies (Unverified , 11/01/15) Objective Last 24 Hour Vital Signs Date Time Temp Pulse Resp B/P (MAP) Pulse Ox O2 Delivery O2 Flow Rate FiO2 12/17/17 12:00 98.1 125/70 (88) 98.1 12/17/17 08:47 64 125/65 12/17/17 08:20 98.4 12/17/17 08:00 98.2 64 19 125/65 93 Bi-pap 98.2 12/17/17 07:25 93 Nasal Cannula 3.0 32 12/17/17 07:25 64 18 Nasal Cannula 3.0 32 12/17/17 07:25 Nasal Cannula 3.0 32 12/17/17 05:40 69 20 93 Facial 30 12/17/17 04:00 98.4 70 19 128/70 91 Bi-pap 98.4 12/17/17 03:33 72 17 94 Facial 30 12/17/17 01:07 70 18 93 Facial 30 12/17/17 00:00 98.3 72 18 146/79 91 Nasal Cannula 2.0 98.3 12/16/17 22:27 71 24 93 Facial 30 12/16/17 20:36 77 20 Nasal Cannula 3.0 32 12/16/17 20:36 93 Nasal Cannula 3.0 32 12/16/17 20:36 Nasal Cannula 3.0 32 12/16/17 20:00 98.1 78 18 121/75 92 Nasal Cannula 2.0 98.1 12/16/17 17:54 97.9 12/16/17 16:00 97.9 74 18 127/75 94 Nasal Cannula 2.0 97.9 Intake and Output 12/16/17 12/17/17 19:00 07:00 Intake Total 500 ml 100 ml Output Total 4 ml Balance 496 ml 100 ml Intake Oral 500 ml 100 ml Output Urine Total 4 ml # Voids 1 2 General Appearance: WD/WN HEENT: normocephalic, atraumatic Respiratory/Chest: chest wall non-tender, lungs clear Breasts: no masses Cardiovascular: normal peripheral pulses, normal rate Abdomen: normal bowel sounds, no organomegaly 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 Complete Laboratory Tests 12/16/17 19:30: Haptoglobin [Pending], Prothrombin Time 10.4, Prothromb Time International Ratio 1.0, Thyroid Stimulating Hormone (TSH) 4.509H, Heparin-PF4 Antibody Screen [Pending], Hepatitis A IgM Antibody Negative, Hepatitis B Surface Antigen Negative, Hepatitis B Core IgM Antibody Negative, Hepatitis C Antibody < 0.1, HIV (1&2) Antibody Rapid Negative 12/17/17 06:20: White Blood Count 7.6, Red Blood Count 4.18L, Hemoglobin 12.0, Hematocrit 37.0, Mean Corpuscular Volume 88, Mean Corpuscular Hemoglobin 28.7, Mean Corpuscular Hemoglobin Concent 32.5, Red Cell Distribution Width 13.7, Platelet Count 154#, Mean Platelet Volume 7.5, Neutrophils (%) (Auto) 66.6, Lymphocytes (%) (Auto) 24.7, Monocytes (%) (Auto) 6.0, Eosinophils (%) (Auto) 1.4, Basophils (%) (Auto ) 1.3, Sodium Level 142, Potassium Level 4.1, Chloride Level 106, Carbon Dioxide Level 33H, Anion Gap 3L, Blood Urea Nitrogen 17, Creatinine 0.7, Estimat Glomerular Filtration Rate > 60, Glucose Level 83, Calcium Level 8.2L, Phosphorus Level 3.4, Magnesium Level 2.1, Total Bilirubin 0.3, Aspartate Amino Transf (AST/SGOT) 15, Alanine Aminotransferase (ALT/SGPT) 16, Alkaline Phosphatase 95, Total Protein 7.1, Albumin 2.6L, Globulin 4.5, Albumin/Globulin Ratio 0.6L Current Medications Medications (Trade) Dose Ordered Sig/Harish Route PRN Reason Start Time Stop Time Status Last Admin Dose Admin Acetaminophen (Tylenol) 650 mg Q6H PRN ORAL Mild Pain/Temp > 100.5 12/16/17 07:00 01/15/18 06:59 Acetaminophen/ Hydrocodone Bitart ([place] 5/325) 1 tab Q4H PRN ORAL Moderate Pain (Pain Scale 4-6) 12/16/17 07:00 12/23/17 06:59 12/17/17 07:22 Albuterol/ Ipratropium (Albuterol/ Ipratropium) 3 ml Q4H PRN HHN Shortness of Breath 12/16/17 07:00 12/21/17 06:59 Amlodipine Besylate (Norvasc) 5 mg DAILY ORAL 12/16/17 09:00 01/15/18 08:59 12/17/17 08:47 Atorvastatin Calcium (Lipitor) 40 mg BEDTIME ORAL 12/16/17 21:00 01/15/18 20:59 12/16/17 21:15 Levothyroxine Sodium (Synthroid) 75 mcg ACBREAKFAST ORAL 12/17/17 06:30 01/16/18 06:29 12/17/17 07:21 Morphine Sulfate (Morphine Sulfate) 4 mg Q4H PRN IVP Severe Pain (Pain Scale 7-10) 12/16/17 07:00 12/23/17 06:59 Ondansetron HCl (Zofran) 4 mg Q4H PRN IVP Nausea & Vomiting 12/16/17 07:00 01/15/18 06:59 Risperidone (RisperDAL) 2 mg BEDTIME ORAL 12/16/17 21:00 01/15/18 20:59 12/16/17 21:15 Sertraline HCl (Zoloft) 100 mg DAILY ORAL 12/16/17 13:00 01/15/18 12:59 12/17/17 08:47 Regla Carlin MD Dec 17, 2017 13:02
--- NOTE | 2017-12-17 13:47 | Diagnostic Imaging Report ---
Indication:Abdominal pain Technique: Grayscale and duplex Doppler imaging of the abdomen performed. Comparison: None Findings: The liver measures 22 cm. The spleen measures about 14 cm. There is no ascites. Portal vein is patent by Doppler examination. Gallbladder is absent. There is questionable nodularity of the liver surface on high-resolution imaging. Kidneys are unremarkable. There is no hydronephrosis. CBD is between 8 and 9 mm which is prominent. Correlate clinically. Pancreas and aorta are poorly seen. IMPRESSION: Hepatosplenomegaly. Prominent CBD. Correlate clinically and evaluate further as needed.
[2017-12-17 16:00] VITALS: BP 125/70
--- NOTE | 2017-12-17 16:45 | Internal Med Progress Note ---
Subjective Date of Service: Dec 17, 2017 Physician Name Dyllan Johnson Attending Physician Jh Coffman MD Current Medications Medications (Trade) Dose Ordered Sig/Harish Route PRN Reason Start Time Stop Time Status Last Admin Dose Admin Acetaminophen (Tylenol) 650 mg Q6H PRN ORAL Mild Pain/Temp > 100.5 12/16/17 07:00 01/15/18 06:59 Acetaminophen/ Hydrocodone Bitart ([place] 5/325) 1 tab Q4H PRN ORAL Moderate Pain (Pain Scale 4-6) 12/16/17 07:00 12/23/17 06:59 12/17/17 15:25 Albuterol/ Ipratropium (Albuterol/ Ipratropium) 3 ml Q4H PRN HHN Shortness of Breath 12/16/17 07:00 12/21/17 06:59 Amlodipine Besylate (Norvasc) 5 mg DAILY ORAL 12/16/17 09:00 01/15/18 08:59 12/17/17 08:47 Atorvastatin Calcium (Lipitor) 40 mg BEDTIME ORAL 12/16/17 21:00 01/15/18 20:59 12/16/17 21:15 Levothyroxine Sodium (Synthroid) 75 mcg ACBREAKFAST ORAL 12/17/17 06:30 01/16/18 06:29 12/17/17 07:21 Morphine Sulfate (Morphine Sulfate) 4 mg Q4H PRN IVP Severe Pain (Pain Scale 7-10) 12/16/17 07:00 12/23/17 06:59 Ondansetron HCl (Zofran) 4 mg Q4H PRN IVP Nausea & Vomiting 12/16/17 07:00 01/15/18 06:59 Risperidone (RisperDAL) 2 mg BEDTIME ORAL 12/16/17 21:00 01/15/18 20:59 12/16/17 21:15 Sertraline HCl (Zoloft) 100 mg DAILY ORAL 12/16/17 13:00 01/15/18 12:59 12/17/17 08:47 Allergies: Coded Allergies: No Known Allergies (Unverified , 11/01/15) ROS Limited/Unobtainable: No Constitutional: Reports: no symptoms HEENT: Reports: no symptoms Cardiovascular: Reports: no symptoms Respiratory: Reports: no symptoms Gastrointestinal/Abdominal: Reports: no symptoms Genitourinary: Reports: no symptoms Neurologic/Psychiatric: Reports: no symptoms Subjective 57 YO F admitted with right fibular fracture. Cover for Int Narciso-Dr Coffman Objective Last Vital Signs Date Time Temp Pulse Resp B/P (MAP) Pulse Ox O2 Delivery O2 Flow Rate FiO2 12/17/17 16:20 98.1 12/17/17 16:00 69 18 125/70 (88) 94 12/17/17 08:00 Bi-pap 12/17/17 07:25 3.0 32 General Appearance: no apparent distress, alert, obese EENT: PERRL/EOMI, normal ENT inspection Neck: non-tender, normal alignment, supple, normal inspection Cardiovascular: normal peripheral pulses, normal rate, regular rhythm, no gallop/murmur, no JVD Respiratory/Chest: chest wall non-tender, lungs clear, normal breath sounds, no respiratory distress, no accessory muscle use Abdomen: normal bowel sounds, non tender, soft, no organomegaly, no mass Extremities: normal range of motion 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, no motor/sensory deficits Skin: normal pigmentation, warm/dry Laboratory Tests Test 12/16/17 19:30 12/17/17 06:20 Haptoglobin Pending Prothrombin Time 10.4 SEC (9.30-11.50) Prothromb Time International Ratio 1.0 (0.9-1.1) Thyroid Stimulating Hormone (TSH) 4.509 uiU/mL (0.358-3.740) Heparin-PF4 Antibody Screen Pending Hepatitis A IgM Antibody Negative (Negative) Hepatitis B Surface Antigen Negative (Negative) Hepatitis B Core IgM Antibody Negative (Negative) Hepatitis C Antibody <0.1 s/co ratio HIV (1&2) Antibody Rapid Negative (NEGATIVE) White Blood Count 7.6 K/UL (4.8-10.8) Red Blood Count 4.18 M/UL (4.20-5.40) L Hemoglobin 12.0 G/DL (12.0-16.0) Hematocrit 37.0 % (37.0-47.0) Mean Corpuscular Volume 88 FL (80-99) Mean Corpuscular Hemoglobin 28.7 PG (27.0-31.0) Mean Corpuscular Hemoglobin Concent 32.5 G/DL (32.0-36.0) Red Cell Distribution Width 13.7 % (11.6-14.8) Platelet Count 154 K/UL (150-450) # Mean Platelet Volume 7.5 FL (6.5-10.1) Neutrophils (%) (Auto) 66.6 % (45.0-75.0) Lymphocytes (%) (Auto) 24.7 % (20.0-45.0) Monocytes (%) (Auto) 6.0 % (1.0-10.0) Eosinophils (%) (Auto) 1.4 % (0.0-3.0) Basophils (%) (Auto) 1.3 % (0.0-2.0) Sodium Level 142 MMOL/L (136-145) Potassium Level 4.1 MMOL/L (3.5-5.1) Chloride Level 106 MMOL/L (98-107) Carbon Dioxide Level 33 MMOL/L (21-32) H Anion Gap 3 mmol/L (5-15) L Blood Urea Nitrogen 17 mg/dL (7-18) Creatinine 0.7 MG/DL (0.55-1.30) Estimat Glomerular Filtration Rate > 60 mL/min (>60) Glucose Level 83 MG/DL (74-106) Calcium Level 8.2 MG/DL (8.5-10.1) L Phosphorus Level 3.4 MG/DL (2.5-4.9) Magnesium Level 2.1 MG/DL (1.8-2.4) Total Bilirubin 0.3 MG/DL (0.2-1.0) Aspartate Amino Transf (AST/SGOT) 15 U/L (15-37) Alanine Aminotransferase (ALT/SGPT) 16 U/L (12-78) Alkaline Phosphatase 95 U/L (46-116) Total Protein 7.1 G/DL (6.4-8.2) Albumin 2.6 G/DL (3.4-5.0) L Globulin 4.5 g/dL Albumin/Globulin Ratio 0.6 (1.0-2.7) L Microbiology Date/Time Source Procedure Growth Status 12/16/17 06:50 Nasal Nares Left MRSA Culture - Final NO METHICILLIN RESISTANT STAPH AUREUS... Complete Intake and Output 12/16/17 12/17/17 19:00 07:00 Intake Total 500 ml 100 ml Output Total 4 ml Balance 496 ml 100 ml Intake Oral 500 ml 100 ml Output Urine Total 4 ml # Voids 1 2 Assessment/Plan Problem List: (1) Bipolar depression Assessment & Plan: See psych note. Continue risperdal and zoloft (2) Hypercholesterolemia Assessment & Plan: Continue lipitor (3) Coagulopathy Assessment & Plan: See hematology note. Repeat PTT (4) Thrombocytopenia (5) Fibula fracture (6) HTN (hypertension) Assessment & Plan: Continue norvasc (7) Morbid obesity Status: not improved Dyllan Johnson MD Dec 17, 2017 16:45
[2017-12-17] MEDS: Morphine Sulfate 4mg/ml Inj IVP PRN (18:30)
[2017-12-17] MEDS: Atorvastatin 20mg tab ORAL SCH (20:17)
[2017-12-17 20:20] VITALS: BP 119/73
[2017-12-18] VITALS: BP 145/85
[2017-12-18 04:00] VITALS: BP 130/68
[2017-12-18] MEDS: Norco 5mg/325mg tab ORAL PRN (05:51)
[2017-12-18 07:11] LABS: ANION GAP 2 mmol/L (5-15); BLOOD UREA NITROGEN 19 mg/dL (7-18); CALCIUM 8.5 MG/DL (8.5-10.1); CARBON DIOXIDE 35 MMOL/L (21-32); CHLORIDE 107 MMOL/L (98-107); CREATININE 0.6 MG/DL (0.55-1.30); POTASSIUM 3.9 MMOL/L (3.5-5.1); SODIUM 144 MMOL/L (136-145)
[2017-12-18 07:24] LABS: BASOPHILS % (AUTO) 0.8 % (0.0-2.0); EOSINOPHILS % (AUTO) 1.6 % (0.0-3.0); HEMATOCRIT 37.1 % (37.0-47.0); HEMOGLOBIN 11.9 G/DL (12.0-16.0); LYMPHOCYTES % (AUTO) 22.2 % (20.0-45.0); MEAN CORPUSCULAR VOLUME 88 FL (80-99); MONOCYTES % (AUTO) 7.7 % (1.0-10.0); NEUTROPHILS % (AUTO) 67.8 % (45.0-75.0); PLATELET COUNT 166 K/UL (150-450); RED BLOOD COUNT 4.23 M/UL (4.20-5.40); WHITE BLOOD COUNT 7.7 K/UL (4.8-10.8)
[2017-12-18 08:00] VITALS: BP 127/66
--- NOTE | 2017-12-18 08:01 | General Progress Note ---
Assessment/Plan Status: stable Assessment/Plan 1. Coagulopathy. PTT of 149. Likely was a lab error --> potentially it is underlying vitamin K insufficiency. -> repeat ptt improved, currently 24 2. Thrombocytopenia. --> 12/17 platelet count at 154 --> hepatitis panel, HIV are both negative --> US abd shows hepatosplenomegaly 3. Hypertension. Systolic blood pressure goal is less than 140. 4. Ankle fracture. Outpatient management. The patient has HMO insurance. 5. Azotemia, dehydration. Subjective Date patient seen: Dec 18, 2017 Allergies: Coded Allergies: No Known Allergies (Unverified , 11/01/15) All Systems: reviewed and negative except above Subjective No acute events. Pt cooperative and tolerating meds. Vitals are stable. US abd shows hepatosplenomegaly. Objective Last 24 Hour Vital Signs Date Time Temp Pulse Resp B/P (MAP) Pulse Ox O2 Delivery O2 Flow Rate FiO2 12/18/17 07:12 96 Nasal Cannula 3.0 32 12/18/17 07:12 60 16 Nasal Cannula 3.0 32 12/18/17 07:12 Nasal Cannula 3.0 32 12/18/17 05:46 61 18 95 Facial 30 12/18/17 04:00 97.8 54 18 130/68 (88) 94 97.8 12/18/17 03:38 60 19 95 Facial 30 12/18/17 01:02 68 20 96 Facial 30 12/18/17 00:00 97.5 60 18 145/85 (105) 96 97.5 12/17/17 22:24 65 22 94 Facial 30 12/17/17 21:00 Nasal Cannula 2.0 12/17/17 20:20 98.7 62 18 119/73 (88) 93 98.7 12/17/17 20:05 92 Nasal Cannula 3.0 32 12/17/17 20:05 Nasal Cannula 3.0 32 12/17/17 20:04 71 18 Nasal Cannula 3.0 32 12/17/17 19:02 98.1 12/17/17 18:30 98.1 12/17/17 16:20 98.1 12/17/17 16:00 98.1 69 18 125/70 (88) 94 98.1 12/17/17 12:00 98.1 125/70 (88) 98.1 12/17/17 08:47 64 125/65 12/17/17 08:00 98.2 64 19 125/65 93 Bi-pap 98.2 Intake and Output 12/17/17 12/18/17 19:00 07:00 Intake Total 740 ml 480 ml Balance 740 ml 480 ml Intake Oral 740 ml 480 ml # Voids 3 1 Laboratory Tests 12/18/17 05:05: White Blood Count 7.7, Red Blood Count 4.23, Hemoglobin 11.9L, Hematocrit 37.1, Mean Corpuscular Volume 88, Mean Corpuscular Hemoglobin 28.2, Mean Corpuscular Hemoglobin Concent 32.1, Red Cell Distribution Width 14.0, Platelet Count 166, Mean Platelet Volume 7.9, Neutrophils (%) (Auto) 67.8, Lymphocytes (%) (Auto) 22.2, Monocytes (%) (Auto) 7.7, Eosinophils (%) (Auto) 1.6, Basophils (%) (Auto ) 0.8, Prothrombin Time [Pending], Prothromb Time International Ratio [Pending] , Activated Partial Thromboplast Time [Pending], Sodium Level 144, Potassium Level 3.9, Chloride Level 107, Carbon Dioxide Level 35H, Anion Gap 2L, Blood Urea Nitrogen 19H, Creatinine 0.6, Estimat Glomerular Filtration Rate > 60, Glucose Level 79, Calcium Level 8.5 Height (Feet): 5 Height (Inches): 9.00 Weight (Pounds): 360 General Appearance: no apparent distress, alert EENT: PERRL/EOMI Neck: normal alignment Cardiovascular: normal peripheral pulses Respiratory/Chest: normal breath sounds, no respiratory distress Abdomen: soft Leroy Pedraza MD Dec 18, 2017 08:01
[2017-12-18] MEDS: Sertraline 50mg tab ORAL SCH (08:16)
[2017-12-18] MEDS: Morphine Sulfate 4mg/ml Inj IVP PRN ×3 (08:19→21:01)
[2017-12-18 12:00] VITALS: BP 128/68
--- NOTE | 2017-12-18 15:29 | Internal Med Progress Note ---
Subjective Date of Service: Dec 18, 2017 Physician Name Dyllan Johnson Attending Physician Jh Coffman MD Current Medications Medications (Trade) Dose Ordered Sig/Harish Route PRN Reason Start Time Stop Time Status Last Admin Dose Admin Acetaminophen (Tylenol) 650 mg Q6H PRN ORAL Mild Pain/Temp > 100.5 12/16/17 07:00 01/15/18 06:59 Acetaminophen/ Hydrocodone Bitart ([place] 5/325) 1 tab Q4H PRN ORAL Moderate Pain (Pain Scale 4-6) 12/16/17 07:00 12/23/17 06:59 12/18/17 05:51 Albuterol/ Ipratropium (Albuterol/ Ipratropium) 3 ml Q4H PRN HHN Shortness of Breath 12/16/17 07:00 12/21/17 06:59 Amlodipine Besylate (Norvasc) 5 mg DAILY ORAL 12/16/17 09:00 01/15/18 08:59 12/18/17 08:16 Atorvastatin Calcium (Lipitor) 40 mg BEDTIME ORAL 12/16/17 21:00 01/15/18 20:59 12/17/17 20:17 Levothyroxine Sodium (Synthroid) 75 mcg ACBREAKFAST ORAL 12/17/17 06:30 01/16/18 06:29 12/18/17 06:28 Morphine Sulfate (Morphine Sulfate) 6 mg Q3H PRN IVP Severe Pain (Pain Scale 7-10) 12/18/17 12:30 12/25/17 12:29 12/18/17 15:06 Ondansetron HCl (Zofran) 4 mg Q4H PRN IVP Nausea & Vomiting 12/16/17 07:00 01/15/18 06:59 Risperidone (RisperDAL) 2 mg BEDTIME ORAL 12/16/17 21:00 01/15/18 20:59 12/17/17 20:17 Sertraline HCl (Zoloft) 100 mg DAILY ORAL 12/16/17 13:00 01/15/18 12:59 12/18/17 08:16 Allergies: Coded Allergies: No Known Allergies (Unverified , 11/01/15) ROS Limited/Unobtainable: No Constitutional: Reports: no symptoms HEENT: Reports: no symptoms Cardiovascular: Reports: no symptoms Respiratory: Reports: no symptoms Gastrointestinal/Abdominal: Reports: no symptoms Genitourinary: Reports: no symptoms Neurologic/Psychiatric: Reports: no symptoms Subjective 57 YO F admitted with right fibular fracture. Cover for Int Narciso-Dr Coffman. Await SNF placement Objective Last Vital Signs Date Time Temp Pulse Resp B/P (MAP) Pulse Ox O2 Delivery O2 Flow Rate FiO2 12/18/17 12:00 99.0 70 18 128/68 (88) 95 99.0 12/18/17 08:20 Nasal Cannula 2.0 12/18/17 07:12 32 Laboratory Tests Test 12/18/17 05:05 White Blood Count 7.7 K/UL (4.8-10.8) Red Blood Count 4.23 M/UL (4.20-5.40) Hemoglobin 11.9 G/DL (12.0-16.0) L Hematocrit 37.1 % (37.0-47.0) Mean Corpuscular Volume 88 FL (80-99) Mean Corpuscular Hemoglobin 28.2 PG (27.0-31.0) Mean Corpuscular Hemoglobin Concent 32.1 G/DL (32.0-36.0) Red Cell Distribution Width 14.0 % (11.6-14.8) Platelet Count 166 K/UL (150-450) Mean Platelet Volume 7.9 FL (6.5-10.1) Neutrophils (%) (Auto) 67.8 % (45.0-75.0) Lymphocytes (%) (Auto) 22.2 % (20.0-45.0) Monocytes (%) (Auto) 7.7 % (1.0-10.0) Eosinophils (%) (Auto) 1.6 % (0.0-3.0) Basophils (%) (Auto) 0.8 % (0.0-2.0) Prothrombin Time 10.5 SEC (9.30-11.50) Prothromb Time International Ratio 1.0 (0.9-1.1) Activated Partial Thromboplast Time 24 SEC (23-33) Sodium Level 144 MMOL/L (136-145) Potassium Level 3.9 MMOL/L (3.5-5.1) Chloride Level 107 MMOL/L (98-107) Carbon Dioxide Level 35 MMOL/L (21-32) H Anion Gap 2 mmol/L (5-15) L Blood Urea Nitrogen 19 mg/dL (7-18) H Creatinine 0.6 MG/DL (0.55-1.30) Estimat Glomerular Filtration Rate > 60 mL/min (>60) Glucose Level 79 MG/DL (74-106) Calcium Level 8.5 MG/DL (8.5-10.1) Microbiology Date/Time Source Procedure Growth Status 12/16/17 06:50 Nasal Nares Left MRSA Culture - Final NO METHICILLIN RESISTANT STAPH AUREUS... Complete 12/16/17 06:50 Rectum VRE Culture - Final NO VANCOMYCIN RESISTANT ENTEROCOCCUS ... Complete Intake and Output 12/17/17 12/18/17 19:00 07:00 Intake Total 740 ml 480 ml Balance 740 ml 480 ml Intake Oral 740 ml 480 ml # Voids 3 1 Objective General Appearance: no apparent distress, alert, obese EENT: PERRL/EOMI, normal ENT inspection Neck: non-tender, normal alignment, supple, normal inspection Cardiovascular: normal peripheral pulses, normal rate, regular rhythm, no gallop/murmur, no JVD Respiratory/Chest: chest wall non-tender, lungs clear, normal breath sounds, no respiratory distress, no accessory muscle use Abdomen: normal bowel sounds, non tender, soft, no organomegaly, no mass Extremities: normal range of motion 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 Continue risperdal and zoloft (2) Hypercholesterolemia Assessment & Plan: Continue lipitor (3) Coagulopathy Assessment & Plan: See hematology note. Repeat PTT (4) Thrombocytopenia (5) Fibula fracture (6) HTN (hypertension) Assessment & Plan: Continue norvasc (7) Morbid obesity Assessment/Plan Discharge planning: care home facility Dyllan Johnson MD Dec 18, 2017 15:29
--- NOTE | 2017-12-18 19:20 | Pulmonology Progress Note ---
Assessment/Plan Problems: (1) COPD (chronic obstructive pulmonary disease) (2) Fibula fracture (3) Morbid obesity (4) Psychiatric disorder (5) Lives in assisted living facility Assessment/Plan pain control improving respiratory treatment titrate fio2 to sat of 92% ortho evaluation reviewed dc planning Subjective ROS Limited/Unobtainable: No Constitutional: Reports: no symptoms HEENT: Repors: no symptoms Respiratory: Reports: no symptoms Allergies: Coded Allergies: No Known Allergies (Unverified , 11/01/15) Objective Last 24 Hour Vital Signs Date Time Temp Pulse Resp B/P (MAP) Pulse Ox O2 Delivery O2 Flow Rate FiO2 12/18/17 12:00 99.0 70 18 128/68 (88) 95 99.0 12/18/17 08:20 Nasal Cannula 2.0 12/18/17 08:16 63 127/66 12/18/17 08:00 98.3 63 18 127/66 (86) 93 98.3 12/18/17 07:12 96 Nasal Cannula 3.0 32 12/18/17 07:12 60 16 Nasal Cannula 3.0 32 12/18/17 07:12 Nasal Cannula 3.0 32 12/18/17 05:46 61 18 95 Facial 30 12/18/17 04:00 97.8 54 18 130/68 (88) 94 97.8 12/18/17 03:38 60 19 95 Facial 30 12/18/17 01:02 68 20 96 Facial 30 12/18/17 00:00 97.5 60 18 145/85 (105) 96 97.5 12/17/17 22:24 65 22 94 Facial 30 12/17/17 21:00 Nasal Cannula 2.0 12/17/17 20:20 98.7 62 18 119/73 (88) 93 98.7 12/17/17 20:05 92 Nasal Cannula 3.0 32 12/17/17 20:05 Nasal Cannula 3.0 32 12/17/17 20:04 71 18 Nasal Cannula 3.0 32 Intake and Output 12/17/17 12/18/17 19:00 07:00 Intake Total 740 ml 480 ml Balance 740 ml 480 ml Intake Oral 740 ml 480 ml # Voids 3 1 Objective General Appearance: WD/WN HEENT: normocephalic, atraumatic Respiratory/Chest: chest wall non-tender, lungs clear Breasts: no masses Cardiovascular: normal peripheral pulses, normal rate Abdomen: normal bowel sounds, no organomegaly 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 Complete 12/16/17 06:50 Rectum VRE Culture - Final NO VANCOMYCIN RESISTANT ENTEROCOCCUS ... Complete Laboratory Tests 12/18/17 05:05: White Blood Count 7.7, Red Blood Count 4.23, Hemoglobin 11.9L, Hematocrit 37.1, Mean Corpuscular Volume 88, Mean Corpuscular Hemoglobin 28.2, Mean Corpuscular Hemoglobin Concent 32.1, Red Cell Distribution Width 14.0, Platelet Count 166, Mean Platelet Volume 7.9, Neutrophils (%) (Auto) 67.8, Lymphocytes (%) (Auto) 22.2, Monocytes (%) (Auto) 7.7, Eosinophils (%) (Auto) 1.6, Basophils (%) (Auto ) 0.8, Prothrombin Time 10.5, Prothromb Time International Ratio 1.0, Activated Partial Thromboplast Time 24, Sodium Level 144, Potassium Level 3.9, Chloride Level 107, Carbon Dioxide Level 35H, Anion Gap 2L, Blood Urea Nitrogen 19H, Creatinine 0.6, Estimat Glomerular Filtration Rate > 60, Glucose Level 79, Calcium Level 8.5 Current Medications Medications (Trade) Dose Ordered Sig/Harish Route PRN Reason Start Time Stop Time Status Last Admin Dose Admin Acetaminophen (Tylenol) 650 mg Q6H PRN ORAL Mild Pain/Temp > 100.5 12/16/17 07:00 01/15/18 06:59 Acetaminophen/ Hydrocodone Bitart ([place] 5/325) 1 tab Q4H PRN ORAL Moderate Pain (Pain Scale 4-6) 12/16/17 07:00 12/23/17 06:59 12/18/17 05:51 Albuterol/ Ipratropium (Albuterol/ Ipratropium) 3 ml Q4H PRN HHN Shortness of Breath 12/16/17 07:00 12/21/17 06:59 Amlodipine Besylate (Norvasc) 5 mg DAILY ORAL 12/16/17 09:00 01/15/18 08:59 12/18/17 08:16 Atorvastatin Calcium (Lipitor) 40 mg BEDTIME ORAL 12/16/17 21:00 01/15/18 20:59 12/17/17 20:17 Levothyroxine Sodium (Synthroid) 75 mcg ACBREAKFAST ORAL 12/17/17 06:30 01/16/18 06:29 12/18/17 06:28 Morphine Sulfate (Morphine Sulfate) 6 mg Q3H PRN IVP Severe Pain (Pain Scale 7-10) 12/18/17 12:30 12/25/17 12:29 12/18/17 15:06 Ondansetron HCl (Zofran) 4 mg Q4H PRN IVP Nausea & Vomiting 12/16/17 07:00 01/15/18 06:59 Risperidone (RisperDAL) 2 mg BEDTIME ORAL 12/16/17 21:00 01/15/18 20:59 12/17/17 20:17 Sertraline HCl (Zoloft) 100 mg DAILY ORAL 12/16/17 13:00 01/15/18 12:59 12/18/17 08:16 Regla Carlin MD Dec 18, 2017 19:20
[2017-12-18 20:00] VITALS: BP 126/73
[2017-12-18] MEDS: Atorvastatin 20mg tab ORAL SCH (21:00)
--- NOTE | 2017-12-18 23:22 | General Progress Note ---
Assessment/Plan Assessment/Plan Bipolar d/o schizophrenia by yaw godwin pt was provided ro/st Subjective Neurologic/Psychiatric: Reports: anxiety, depressed Allergies: Coded Allergies: No Known Allergies (Unverified , 11/01/15) Objective Last 24 Hour Vital Signs Date Time Temp Pulse Resp B/P (MAP) Pulse Ox O2 Delivery O2 Flow Rate FiO2 12/18/17 20:51 Nasal Cannula 3.0 32 12/18/17 20:51 68 16 Nasal Cannula 3.0 32 12/18/17 20:51 98 Nasal Cannula 3.0 32 12/18/17 20:00 97.8 66 22 126/73 (90) 91 97.8 12/18/17 12:00 99.0 70 18 128/68 (88) 95 99.0 12/18/17 08:20 Nasal Cannula 2.0 12/18/17 08:16 63 127/66 12/18/17 08:00 98.3 63 18 127/66 (86) 93 98.3 12/18/17 07:12 96 Nasal Cannula 3.0 32 12/18/17 07:12 60 16 Nasal Cannula 3.0 32 12/18/17 07:12 Nasal Cannula 3.0 32 12/18/17 05:46 61 18 95 Facial 30 12/18/17 04:00 97.8 54 18 130/68 (88) 94 97.8 12/18/17 03:38 60 19 95 Facial 30 12/18/17 01:02 68 20 96 Facial 30 12/18/17 00:00 97.5 60 18 145/85 (105) 96 97.5 Intake and Output 12/17/17 12/18/17 19:00 07:00 Intake Total 740 ml 480 ml Balance 740 ml 480 ml Intake Oral 740 ml 480 ml # Voids 3 1 Laboratory Tests 12/18/17 05:05: White Blood Count 7.7, Red Blood Count 4.23, Hemoglobin 11.9L, Hematocrit 37.1, Mean Corpuscular Volume 88, Mean Corpuscular Hemoglobin 28.2, Mean Corpuscular Hemoglobin Concent 32.1, Red Cell Distribution Width 14.0, Platelet Count 166, Mean Platelet Volume 7.9, Neutrophils (%) (Auto) 67.8, Lymphocytes (%) (Auto) 22.2, Monocytes (%) (Auto) 7.7, Eosinophils (%) (Auto) 1.6, Basophils (%) (Auto ) 0.8, Prothrombin Time 10.5, Prothromb Time International Ratio 1.0, Activated Partial Thromboplast Time 24, Sodium Level 144, Potassium Level 3.9, Chloride Level 107, Carbon Dioxide Level 35H, Anion Gap 2L, Blood Urea Nitrogen 19H, Creatinine 0.6, Estimat Glomerular Filtration Rate > 60, Glucose Level 79, Calcium Level 8.5 Height (Feet): 5 Height (Inches): 9.00 Weight (Pounds): 360 Kalpana Gann MD Dec 18, 2017 23:22
[2017-12-19] VITALS: BP 141/71
[2017-12-19 04:00] VITALS: BP 135/75
[2017-12-19 06:16] LABS: BASOPHILS % (AUTO) 0.9 % (0.0-2.0); EOSINOPHILS % (AUTO) 1.9 % (0.0-3.0); HEMOGLOBIN 12.5 G/DL (12.0-16.0); LYMPHOCYTES % (AUTO) 17.2 % (20.0-45.0); MEAN CORPUSCULAR VOLUME 89 FL (80-99); MONOCYTES % (AUTO) 6.5 % (1.0-10.0); NEUTROPHILS % (AUTO) 73.6 % (45.0-75.0); PLATELET COUNT 166 K/UL (150-450); RED BLOOD COUNT 4.29 M/UL (4.20-5.40); RED CELL DISTRIBUTION WIDTH 13.9 % (11.6-14.8); WHITE BLOOD COUNT 7.5 K/UL (4.8-10.8)
[2017-12-19 06:27] LABS: ANION GAP 4 mmol/L (5-15); BLOOD UREA NITROGEN 18 mg/dL (7-18); CALCIUM 8.2 MG/DL (8.5-10.1); CARBON DIOXIDE 36 MMOL/L (21-32); CHLORIDE 105 MMOL/L (98-107); CREATININE 0.7 MG/DL (0.55-1.30); POTASSIUM 4.1 MMOL/L (3.5-5.1); SODIUM 144 MMOL/L (136-145)
[2017-12-19] MEDS: Morphine Sulfate 4mg/ml Inj IVP PRN (06:42)
[2017-12-19 08:00] VITALS: BP 127/71
[2017-12-19] MEDS: Sertraline 50mg tab ORAL SCH (08:53)
--- NOTE | 2017-12-19 11:20 | General Progress Note ---
Assessment/Plan Status: stable Assessment/Plan 1. Coagulopathy. PTT of 149. Likely was a lab error --> potentially it is underlying vitamin K insufficiency. -> repeat ptt improved, currently 24 2. Thrombocytopenia. --> platelet count improving --> hepatitis panel, HIV are both negative --> US abd shows hepatosplenomegaly 3. Hypertension. Systolic blood pressure goal is less than 140. 4. Ankle fracture. Outpatient management. The patient has HMO insurance. 5. Azotemia, dehydration. The time the note was entered does not necessarily correspond to the time the patient was seen. Subjective Date patient seen: Dec 19, 2017 Allergies: Coded Allergies: No Known Allergies (Unverified , 11/01/15) All Systems: reviewed and negative except above Subjective No acute events. No resp distress. Vitals are stable. Objective Last 24 Hour Vital Signs Date Time Temp Pulse Resp B/P (MAP) Pulse Ox O2 Delivery O2 Flow Rate FiO2 12/19/17 09:00 Nasal Cannula 2.0 12/19/17 08:53 69 127/71 12/19/17 08:00 98.3 69 18 127/71 (89) 93 98.3 12/19/17 07:42 Nasal Cannula 4.0 36 12/19/17 07:41 69 16 Nasal Cannula 4.0 36 12/19/17 07:41 95 Nasal Cannula 4.0 36 12/19/17 05:53 61 20 93 Facial 30 12/19/17 04:00 98.2 66 16 135/75 (95) 93 98.2 12/19/17 03:50 60 19 93 Facial 30 12/19/17 00:40 69 20 97 Facial 30 12/19/17 00:00 98.3 63 15 141/71 (94) 94 98.3 12/18/17 23:10 89 20 98 Facial 30 12/18/17 22:00 89 18 97 Facial 36 12/18/17 21:00 Nasal Cannula 2.0 12/18/17 20:51 Nasal Cannula 3.0 32 12/18/17 20:51 68 16 Nasal Cannula 3.0 32 12/18/17 20:51 98 Nasal Cannula 3.0 32 12/18/17 20:00 97.8 66 22 126/73 (90) 91 97.8 12/18/17 12:00 99.0 70 18 128/68 (88) 95 99.0 Intake and Output 12/18/17 12/19/17 19:00 07:00 Intake Total 800 ml 360 ml Output Total 200 ml Balance 600 ml 360 ml Intake Oral 800 ml 360 ml Output Urine Total 200 ml # Voids 3 2 Laboratory Tests 12/19/17 05:20: White Blood Count 7.5, Red Blood Count 4.29, Hemoglobin 12.5, Hematocrit 38.0, Mean Corpuscular Volume 89, Mean Corpuscular Hemoglobin 29.2, Mean Corpuscular Hemoglobin Concent 32.9, Red Cell Distribution Width 13.9, Platelet Count 166, Mean Platelet Volume 7.9, Neutrophils (%) (Auto) 73.6, Lymphocytes (%) (Auto) 17.2L, Monocytes (%) (Auto) 6.5, Eosinophils (%) (Auto) 1.9, Basophils (%) (Auto ) 0.9, Sodium Level 144, Potassium Level 4.1, Chloride Level 105, Carbon Dioxide Level 36H, Anion Gap 4L, Blood Urea Nitrogen 18, Creatinine 0.7, Estimat Glomerular Filtration Rate > 60, Glucose Level 87, Calcium Level 8.2L Height (Feet): 5 Height (Inches): 9.00 Weight (Pounds): 360 General Appearance: no apparent distress, alert EENT: PERRL/EOMI Neck: normal alignment Cardiovascular: normal peripheral pulses Respiratory/Chest: no respiratory distress Leroy Pedraza MD Dec 19, 2017 11:20
[2017-12-19 12:00] VITALS: BP 128/68
[2017-12-19] MEDS: Norco 5mg/325mg tab ORAL PRN ×2 (12:30→20:31)
--- NOTE | 2017-12-19 12:57 | Internal Med Progress Note ---
Subjective Date of Service: Dec 19, 2017 Physician Name Dyllan Johnson Attending Physician Jh Coffman MD Current Medications Medications (Trade) Dose Ordered Sig/Harish Route PRN Reason Start Time Stop Time Status Last Admin Dose Admin Acetaminophen (Tylenol) 650 mg Q6H PRN ORAL Mild Pain/Temp > 100.5 12/16/17 07:00 01/15/18 06:59 Acetaminophen/ Hydrocodone Bitart ([place] 5/325) 1 tab Q4H PRN ORAL Moderate Pain (Pain Scale 4-6) 12/16/17 07:00 12/23/17 06:59 12/19/17 12:30 Albuterol/ Ipratropium (Albuterol/ Ipratropium) 3 ml Q4H PRN HHN Shortness of Breath 12/16/17 07:00 12/21/17 06:59 Amlodipine Besylate (Norvasc) 5 mg DAILY ORAL 12/16/17 09:00 01/15/18 08:59 12/19/17 08:53 Atorvastatin Calcium (Lipitor) 40 mg BEDTIME ORAL 12/16/17 21:00 01/15/18 20:59 12/18/17 21:00 Levothyroxine Sodium (Synthroid) 75 mcg ACBREAKFAST ORAL 12/17/17 06:30 01/16/18 06:29 12/19/17 06:42 Morphine Sulfate (Morphine Sulfate) 6 mg Q3H PRN IVP Severe Pain (Pain Scale 7-10) 12/18/17 12:30 12/25/17 12:29 12/19/17 06:42 Ondansetron HCl (Zofran) 4 mg Q4H PRN IVP Nausea & Vomiting 12/16/17 07:00 01/15/18 06:59 Risperidone (RisperDAL) 2 mg BEDTIME ORAL 12/16/17 21:00 01/15/18 20:59 12/18/17 21:00 Sertraline HCl (Zoloft) 100 mg DAILY ORAL 12/16/17 13:00 01/15/18 12:59 12/19/17 08:53 Allergies: Coded Allergies: No Known Allergies (Unverified , 11/01/15) ROS Limited/Unobtainable: No Constitutional: Reports: no symptoms HEENT: Reports: no symptoms Cardiovascular: Reports: no symptoms Respiratory: Reports: no symptoms Gastrointestinal/Abdominal: Reports: no symptoms Genitourinary: Reports: no symptoms Neurologic/Psychiatric: Reports: no symptoms Subjective 57 YO F admitted with right fibular fracture. Cover for Int Narc[facility]-Dr Coffman. Await SNF placement vs return to assisted living fac Objective Last Vital Signs Date Time Temp Pulse Resp B/P (MAP) Pulse Ox O2 Delivery O2 Flow Rate FiO2 12/19/17 09:00 Nasal Cannula 2.0 12/19/17 08:53 69 127/71 12/19/17 08:00 98.3 18 93 98.3 12/19/17 07:42 36 Laboratory Tests Test 12/19/17 05:20 White Blood Count 7.5 K/UL (4.8-10.8) Red Blood Count 4.29 M/UL (4.20-5.40) Hemoglobin 12.5 G/DL (12.0-16.0) Hematocrit 38.0 % (37.0-47.0) Mean Corpuscular Volume 89 FL (80-99) Mean Corpuscular Hemoglobin 29.2 PG (27.0-31.0) Mean Corpuscular Hemoglobin Concent 32.9 G/DL (32.0-36.0) Red Cell Distribution Width 13.9 % (11.6-14.8) Platelet Count 166 K/UL (150-450) Mean Platelet Volume 7.9 FL (6.5-10.1) Neutrophils (%) (Auto) 73.6 % (45.0-75.0) Lymphocytes (%) (Auto) 17.2 % (20.0-45.0) L Monocytes (%) (Auto) 6.5 % (1.0-10.0) Eosinophils (%) (Auto) 1.9 % (0.0-3.0) Basophils (%) (Auto) 0.9 % (0.0-2.0) Sodium Level 144 MMOL/L (136-145) Potassium Level 4.1 MMOL/L (3.5-5.1) Chloride Level 105 MMOL/L (98-107) Carbon Dioxide Level 36 MMOL/L (21-32) H Anion Gap 4 mmol/L (5-15) L Blood Urea Nitrogen 18 mg/dL (7-18) Creatinine 0.7 MG/DL (0.55-1.30) Estimat Glomerular Filtration Rate > 60 mL/min (>60) Glucose Level 87 MG/DL (74-106) Calcium Level 8.2 MG/DL (8.5-10.1) L Intake and Output 12/18/17 12/19/17 19:00 07:00 Intake Total 800 ml 360 ml Output Total 200 ml Balance 600 ml 360 ml Intake Oral 800 ml 360 ml Output Urine Total 200 ml # Voids 3 2 Objective General Appearance: no apparent distress, alert, obese EENT: PERRL/EOMI, normal ENT inspection Neck: non-tender, normal alignment, supple, normal inspection Cardiovascular: normal peripheral pulses, normal rate, regular rhythm, no gallop/murmur, no JVD Respiratory/Chest: chest wall non-tender, lungs clear, normal breath sounds, no respiratory distress, no accessory muscle use Abdomen: normal bowel sounds, non tender, soft, no organomegaly, no mass Extremities: normal range of motion 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 Continue risperdal and zoloft (2) Hypercholesterolemia Assessment & Plan: Continue lipitor (3) Coagulopathy Assessment & Plan: See hematology note. Repeat PTT (4) Thrombocytopenia (5) Fibula fracture Assessment & Plan: See ortho note. Splint in place-will need cast on Wed for 3-4 weeks (6) HTN (hypertension) Assessment & Plan: Continue norvasc (7) Morbid obesity (8) Sleep apnea Assessment & Plan: Continue BIPAP at night. Status: progressing Assessment/Plan Discharge planning: [facility] vs return to [facility] living fac Dyllan Johnson MD Dec 19, 2017 12:57
[2017-12-19 16:00] VITALS: BP 129/81
--- NOTE | 2017-12-19 18:10 | Pulmonology Progress Note ---
Assessment/Plan Problems: (1) COPD (chronic obstructive pulmonary disease) (2) Fibula fracture (3) Morbid obesity (4) Psychiatric disorder (5) Lives in assisted living facility Assessment/Plan no new complains awaiting discharge pain control improving respiratory treatment titrate fio2 to sat of 92% ortho evaluation reviewed dc planning Subjective ROS Limited/Unobtainable: No Constitutional: Reports: no symptoms HEENT: Repors: no symptoms Respiratory: Reports: no symptoms Cardiovascular: Reports: no symptoms Allergies: Coded Allergies: No Known Allergies (Unverified , 11/01/15) Objective Last 24 Hour Vital Signs Date Time Temp Pulse Resp B/P (MAP) Pulse Ox O2 Delivery O2 Flow Rate FiO2 12/19/17 16:00 98.9 69 18 129/81 (97) 94 98.9 12/19/17 12:00 98.4 69 18 128/68 (88) 93 98.4 12/19/17 09:00 Nasal Cannula 2.0 12/19/17 08:53 69 127/71 12/19/17 08:00 98.3 69 18 127/71 (89) 93 98.3 12/19/17 07:42 Nasal Cannula 4.0 36 12/19/17 07:41 69 16 Nasal Cannula 4.0 36 12/19/17 07:41 95 Nasal Cannula 4.0 36 12/19/17 05:53 61 20 93 Facial 30 12/19/17 04:00 98.2 66 16 135/75 (95) 93 98.2 12/19/17 03:50 60 19 93 Facial 30 12/19/17 00:40 69 20 97 Facial 30 12/19/17 00:00 98.3 63 15 141/71 (94) 94 98.3 12/18/17 23:10 89 20 98 Facial 30 12/18/17 22:00 89 18 97 Facial 36 12/18/17 21:00 Nasal Cannula 2.0 12/18/17 20:51 Nasal Cannula 3.0 32 12/18/17 20:51 68 16 Nasal Cannula 3.0 32 12/18/17 20:51 98 Nasal Cannula 3.0 32 12/18/17 20:00 97.8 66 22 126/73 (90) 91 97.8 Intake and Output 12/18/17 12/19/17 19:00 07:00 Intake Total 800 ml 360 ml Output Total 200 ml Balance 600 ml 360 ml Intake Oral 800 ml 360 ml Output Urine Total 200 ml # Voids 3 2 Objective General Appearance: WD/WN HEENT: normocephalic, atraumatic Respiratory/Chest: chest wall non-tender, lungs clear Breasts: no masses Cardiovascular: normal peripheral pulses, normal rate Abdomen: normal bowel sounds, no organomegaly 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/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 Lymphatic: no neck adenopathy Laboratory Tests 12/19/17 05:20: White Blood Count 7.5, Red Blood Count 4.29, Hemoglobin 12.5, Hematocrit 38.0, Mean Corpuscular Volume 89, Mean Corpuscular Hemoglobin 29.2, Mean Corpuscular Hemoglobin Concent 32.9, Red Cell Distribution Width 13.9, Platelet Count 166, Mean Platelet Volume 7.9, Neutrophils (%) (Auto) 73.6, Lymphocytes (%) (Auto) 17.2L, Monocytes (%) (Auto) 6.5, Eosinophils (%) (Auto) 1.9, Basophils (%) (Auto ) 0.9, Sodium Level 144, Potassium Level 4.1, Chloride Level 105, Carbon Dioxide Level 36H, Anion Gap 4L, Blood Urea Nitrogen 18, Creatinine 0.7, Estimat Glomerular Filtration Rate > 60, Glucose Level 87, Calcium Level 8.2L Current Medications Medications (Trade) Dose Ordered Sig/Harish Route PRN Reason Start Time Stop Time Status Last Admin Dose Admin Acetaminophen (Tylenol) 650 mg Q6H PRN ORAL Mild Pain/Temp > 100.5 12/16/17 07:00 01/15/18 06:59 Acetaminophen/ Hydrocodone Bitart ([place] 5/325) 1 tab Q4H PRN ORAL Moderate Pain (Pain Scale 4-6) 12/16/17 07:00 12/23/17 06:59 12/19/17 12:30 Albuterol/ Ipratropium (Albuterol/ Ipratropium) 3 ml Q4H PRN HHN Shortness of Breath 12/16/17 07:00 12/21/17 06:59 Amlodipine Besylate (Norvasc) 5 mg DAILY ORAL 12/16/17 09:00 01/15/18 08:59 12/19/17 08:53 Atorvastatin Calcium (Lipitor) 40 mg BEDTIME ORAL 12/16/17 21:00 01/15/18 20:59 12/18/17 21:00 Levothyroxine Sodium (Synthroid) 75 mcg ACBREAKFAST ORAL 12/17/17 06:30 01/16/18 06:29 12/19/17 06:42 Morphine Sulfate (Morphine Sulfate) 6 mg Q3H PRN IVP Severe Pain (Pain Scale 7-10) 12/18/17 12:30 12/25/17 12:29 12/19/17 06:42 Ondansetron HCl (Zofran) 4 mg Q4H PRN IVP Nausea & Vomiting 12/16/17 07:00 01/15/18 06:59 Risperidone (RisperDAL) 2 mg BEDTIME ORAL 12/16/17 21:00 01/15/18 20:59 12/18/17 21:00 Sertraline HCl (Zoloft) 100 mg DAILY ORAL 12/16/17 13:00 01/15/18 12:59 12/19/17 08:53 Regla Carlin MD Dec 19, 2017 18:10
[2017-12-19 20:00] VITALS: BP 127/71
[2017-12-19] MEDS: Atorvastatin 20mg tab ORAL SCH (20:31)
[2017-12-20] VITALS: BP 140/83
[2017-12-20 04:00] VITALS: BP 130/72
[2017-12-20] MEDS: Norco 5mg/325mg tab ORAL PRN ×2 (06:01→20:21)
[2017-12-20 06:22] LABS: BASOPHILS % (AUTO) 0.5 % (0.0-2.0); EOSINOPHILS % (AUTO) 1.7 % (0.0-3.0); HEMATOCRIT 38.1 % (37.0-47.0); HEMOGLOBIN 12.1 G/DL (12.0-16.0); LYMPHOCYTES % (AUTO) 19.8 % (20.0-45.0); MEAN CORPUSCULAR VOLUME 88 FL (80-99); MONOCYTES % (AUTO) 7.5 % (1.0-10.0); NEUTROPHILS % (AUTO) 70.5 % (45.0-75.0); PLATELET COUNT 192 K/UL (150-450); RED BLOOD COUNT 4.32 M/UL (4.20-5.40); RED CELL DISTRIBUTION WIDTH 13.6 % (11.6-14.8)
[2017-12-20 06:55] LABS: ANION GAP 5 mmol/L (5-15); BLOOD UREA NITROGEN 15 mg/dL (7-18); CALCIUM 8.4 MG/DL (8.5-10.1); CARBON DIOXIDE 34 MMOL/L (21-32); CHLORIDE 106 MMOL/L (98-107); CREATININE 0.7 MG/DL (0.55-1.30); POTASSIUM 3.6 MMOL/L (3.5-5.1); SODIUM 145 MMOL/L (136-145)
[2017-12-20 08:00] VITALS: BP 118/64
[2017-12-20] MEDS: Sertraline 50mg tab ORAL SCH (08:38)
--- NOTE | 2017-12-20 10:26 | Internal Med Progress Note ---
Subjective Date of Service: Dec 20, 2017 Physician Name Dyllan Johnson Attending Physician Jh Coffman MD Current Medications Medications (Trade) Dose Ordered Sig/Harish Route PRN Reason Start Time Stop Time Status Last Admin Dose Admin Acetaminophen (Tylenol) 650 mg Q6H PRN ORAL Mild Pain/Temp > 100.5 12/16/17 07:00 01/15/18 06:59 Acetaminophen/ Hydrocodone Bitart ([place] 5/325) 1 tab Q4H PRN ORAL Moderate Pain (Pain Scale 4-6) 12/16/17 07:00 12/23/17 06:59 12/20/17 06:01 Albuterol/ Ipratropium (Albuterol/ Ipratropium) 3 ml Q4H PRN HHN Shortness of Breath 12/16/17 07:00 12/21/17 06:59 Amlodipine Besylate (Norvasc) 5 mg DAILY ORAL 12/16/17 09:00 01/15/18 08:59 12/20/17 08:38 Atorvastatin Calcium (Lipitor) 40 mg BEDTIME ORAL 12/16/17 21:00 01/15/18 20:59 12/19/17 20:31 Levothyroxine Sodium (Synthroid) 75 mcg ACBREAKFAST ORAL 12/17/17 06:30 01/16/18 06:29 12/20/17 06:00 Morphine Sulfate (Morphine Sulfate) 6 mg Q3H PRN IVP Severe Pain (Pain Scale 7-10) 12/18/17 12:30 12/25/17 12:29 12/19/17 06:42 Ondansetron HCl (Zofran) 4 mg Q4H PRN IVP Nausea & Vomiting 12/16/17 07:00 01/15/18 06:59 Risperidone (RisperDAL) 2 mg BEDTIME ORAL 12/16/17 21:00 01/15/18 20:59 12/19/17 20:31 Sertraline HCl (Zoloft) 100 mg DAILY ORAL 12/16/17 13:00 01/15/18 12:59 12/20/17 08:38 Allergies: Coded Allergies: No Known Allergies (Unverified , 11/01/15) ROS Limited/Unobtainable: No Constitutional: Reports: no symptoms HEENT: Reports: no symptoms Cardiovascular: Reports: no symptoms Respiratory: Reports: no symptoms Gastrointestinal/Abdominal: Reports: no symptoms Genitourinary: Reports: no symptoms Neurologic/Psychiatric: Reports: no symptoms Subjective 57 YO F admitted with right fibular fracture. Cover for Int Narciso-Dr Coffman. Await SNF placement vs return to assisted living fac Objective Last Vital Signs Date Time Temp Pulse Resp B/P (MAP) Pulse Ox O2 Delivery O2 Flow Rate FiO2 12/20/17 08:38 68 118/64 12/20/17 08:00 98.9 18 94 98.9 12/20/17 03:33 Full Face 40 12/19/17 21:00 2.0 Laboratory Tests Test 12/20/17 05:00 White Blood Count 7.0 K/UL (4.8-10.8) Red Blood Count 4.32 M/UL (4.20-5.40) Hemoglobin 12.1 G/DL (12.0-16.0) Hematocrit 38.1 % (37.0-47.0) Mean Corpuscular Volume 88 FL (80-99) Mean Corpuscular Hemoglobin 28.0 PG (27.0-31.0) Mean Corpuscular Hemoglobin Concent 31.8 G/DL (32.0-36.0) L Red Cell Distribution Width 13.6 % (11.6-14.8) Platelet Count 192 K/UL (150-450) Mean Platelet Volume 8.1 FL (6.5-10.1) Neutrophils (%) (Auto) 70.5 % (45.0-75.0) Lymphocytes (%) (Auto) 19.8 % (20.0-45.0) L Monocytes (%) (Auto) 7.5 % (1.0-10.0) Eosinophils (%) (Auto) 1.7 % (0.0-3.0) Basophils (%) (Auto) 0.5 % (0.0-2.0) Sodium Level 145 MMOL/L (136-145) Potassium Level 3.6 MMOL/L (3.5-5.1) Chloride Level 106 MMOL/L (98-107) Carbon Dioxide Level 34 MMOL/L (21-32) H Anion Gap 5 mmol/L (5-15) Blood Urea Nitrogen 15 mg/dL (7-18) Creatinine 0.7 MG/DL (0.55-1.30) Estimat Glomerular Filtration Rate > 60 mL/min (>60) Glucose Level 85 MG/DL (74-106) Calcium Level 8.4 MG/DL (8.5-10.1) L Intake and Output 12/19/17 12/20/17 19:00 07:00 Intake Total 500 ml 240 ml Output Total 300 ml Balance 200 ml 240 ml Intake Oral 500 ml 240 ml Output Urine Total 300 ml Stool Total 0 ml # Voids 5 3 Objective General Appearance: no apparent distress, alert, obese EENT: PERRL/EOMI, normal ENT inspection Neck: non-tender, normal alignment, supple, normal inspection Cardiovascular: normal peripheral pulses, normal rate, regular rhythm, no gallop/murmur, no JVD Respiratory/Chest: chest wall non-tender, lungs clear, normal breath sounds, no respiratory distress, no accessory muscle use Abdomen: normal bowel sounds, non tender, soft, no organomegaly, no mass Extremities: normal range of motion Neurologic: 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 Continue risperdal and zoloft (2) Hypercholesterolemia Assessment & Plan: Continue lipitor (3) Coagulopathy Assessment & Plan: See hematology note. Repeat PTT- normal (4) Thrombocytopenia (5) Fibula fracture Assessment & Plan: See ortho note. Splint in place-will need cast on Wed for 3-4 weeks (6) HTN (hypertension) Assessment & Plan: Continue norvasc (7) Morbid obesity (8) Sleep apnea Assessment & Plan: Continue BIPAP at night. Status: progressing Assessment/Plan Discharge planning: [facility] facility vs return to [facility] living fac Dyllan Johnson MD Dec 20, 2017 10:26
[2017-12-20 12:00] VITALS: BP 135/75
--- NOTE | 2017-12-20 12:58 | General Progress Note ---
Assessment/Plan Status: stable Assessment/Plan 1. Coagulopathy. PTT of 149. Likely was a lab error --> potentially it is underlying vitamin K insufficiency. -> repeat ptt improved, currently 24 2. Thrombocytopenia. --> platelet count improving --> hepatitis panel, HIV are both negative --> US abd shows hepatosplenomegaly 3. Hypertension. Systolic blood pressure goal is less than 140. 4. Ankle fracture. Outpatient management. The patient has HMO insurance. 5. Azotemia, dehydration. The time the note was entered does not necessarily correspond to the time the patient was seen. Subjective Date patient seen: Dec 20, 2017 Allergies: Coded Allergies: No Known Allergies (Unverified , 11/01/15) All Systems: reviewed and negative except above Subjective No acute events. Pt 50% partial weight bearing on right leg. DC to snf planning. Objective Last 24 Hour Vital Signs Date Time Temp Pulse Resp B/P (MAP) Pulse Ox O2 Delivery O2 Flow Rate FiO2 12/20/17 12:00 98.4 63 18 135/75 (95) 94 98.4 12/20/17 09:00 Nasal Cannula 2.0 12/20/17 08:38 68 118/64 12/20/17 08:00 98.9 68 18 118/64 (82) 94 98.9 12/20/17 04:00 98.7 58 15 130/72 (91) 94 98.7 12/20/17 03:33 61 20 94 Full Face 40 12/20/17 00:43 62 20 93 Full Face 40 12/20/17 00:00 98.4 60 16 140/83 (102) 90 98.4 12/19/17 21:30 98.6 12/19/17 21:29 60 21 94 Full Face 30 12/19/17 21:00 Nasal Cannula 2.0 12/19/17 20:06 94 Nasal Cannula 4.0 36 12/19/17 20:06 Nasal Cannula 4.0 36 12/19/17 20:05 59 16 Nasal Cannula 4.0 36 12/19/17 20:00 98.6 62 19 127/71 (89) 93 98.6 12/19/17 16:00 98.9 69 18 129/81 (97) 94 98.9 Intake and Output 12/19/17 12/20/17 19:00 07:00 Intake Total 500 ml 240 ml Output Total 300 ml Balance 200 ml 240 ml Intake Oral 500 ml 240 ml Output Urine Total 300 ml Stool Total 0 ml # Voids 5 3 Laboratory Tests 12/20/17 05:00: White Blood Count 7.0, Red Blood Count 4.32, Hemoglobin 12.1, Hematocrit 38.1, Mean Corpuscular Volume 88, Mean Corpuscular Hemoglobin 28.0, Mean Corpuscular Hemoglobin Concent 31.8L, Red Cell Distribution Width 13.6, Platelet Count 192, Mean Platelet Volume 8.1, Neutrophils (%) (Auto) 70.5, Lymphocytes (%) (Auto) 19.8L, Monocytes (%) (Auto) 7.5, Eosinophils (%) (Auto) 1.7, Basophils (%) (Auto ) 0.5, Sodium Level 145, Potassium Level 3.6, Chloride Level 106, Carbon Dioxide Level 34H, Anion Gap 5, Blood Urea Nitrogen 15, Creatinine 0.7, Estimat Glomerular Filtration Rate > 60, Glucose Level 85, Calcium Level 8.4L Height (Feet): 5 Height (Inches): 9.00 Weight (Pounds): 360 General Appearance: no apparent distress EENT: PERRL/EOMI Neck: normal alignment Cardiovascular: normal peripheral pulses Respiratory/Chest: no respiratory distress Abdomen: normal bowel sounds Leroy Pedraza MD Dec 20, 2017 12:58
--- NOTE | 2017-12-20 13:00 | Pulmonology Progress Note ---
Assessment/Plan Problems: (1) COPD (chronic obstructive pulmonary disease) (2) Fibula fracture (3) Morbid obesity (4) Psychiatric disorder (5) Lives in assisted living facility Assessment/Plan no new complains awaiting discharge pain control improving respiratory treatment titrate fio2 to sat of 92% ortho evaluation reviewed dc planning Subjective ROS Limited/Unobtainable: No Constitutional: Reports: no symptoms HEENT: Repors: no symptoms Respiratory: Reports: no symptoms Allergies: Coded Allergies: No Known Allergies (Unverified , 11/01/15) Objective Last 24 Hour Vital Signs Date Time Temp Pulse Resp B/P (MAP) Pulse Ox O2 Delivery O2 Flow Rate FiO2 12/20/17 12:00 98.4 63 18 135/75 (95) 94 98.4 12/20/17 09:00 Nasal Cannula 2.0 12/20/17 08:38 68 118/64 12/20/17 08:00 98.9 68 18 118/64 (82) 94 98.9 12/20/17 04:00 98.7 58 15 130/72 (91) 94 98.7 12/20/17 03:33 61 20 94 Full Face 40 12/20/17 00:43 62 20 93 Full Face 40 12/20/17 00:00 98.4 60 16 140/83 (102) 90 98.4 12/19/17 21:30 98.6 12/19/17 21:29 60 21 94 Full Face 30 12/19/17 21:00 Nasal Cannula 2.0 12/19/17 20:06 94 Nasal Cannula 4.0 36 12/19/17 20:06 Nasal Cannula 4.0 36 12/19/17 20:05 59 16 Nasal Cannula 4.0 36 12/19/17 20:00 98.6 62 19 127/71 (89) 93 98.6 12/19/17 16:00 98.9 69 18 129/81 (97) 94 98.9 Intake and Output 12/19/17 12/20/17 19:00 07:00 Intake Total 500 ml 240 ml Output Total 300 ml Balance 200 ml 240 ml Intake Oral 500 ml 240 ml Output Urine Total 300 ml Stool Total 0 ml # Voids 5 3 Objective General Appearance: WD/WN HEENT: normocephalic, atraumatic Respiratory/Chest: chest wall non-tender, lungs clear Breasts: no masses Cardiovascular: normal peripheral pulses, normal rate Abdomen: normal bowel sounds, no organomegaly 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 Lymphatic: no neck adenopathy Laboratory Tests 12/20/17 05:00: White Blood Count 7.0, Red Blood Count 4.32, Hemoglobin 12.1, Hematocrit 38.1, Mean Corpuscular Volume 88, Mean Corpuscular Hemoglobin 28.0, Mean Corpuscular Hemoglobin Concent 31.8L, Red Cell Distribution Width 13.6, Platelet Count 192, Mean Platelet Volume 8.1, Neutrophils (%) (Auto) 70.5, Lymphocytes (%) (Auto) 19.8L, Monocytes (%) (Auto) 7.5, Eosinophils (%) (Auto) 1.7, Basophils (%) (Auto ) 0.5, Sodium Level 145, Potassium Level 3.6, Chloride Level 106, Carbon Dioxide Level 34H, Anion Gap 5, Blood Urea Nitrogen 15, Creatinine 0.7, Estimat Glomerular Filtration Rate > 60, Glucose Level 85, Calcium Level 8.4L Current Medications Medications (Trade) Dose Ordered Sig/Harish Route PRN Reason Start Time Stop Time Status Last Admin Dose Admin Acetaminophen (Tylenol) 650 mg Q6H PRN ORAL Mild Pain/Temp > 100.5 12/16/17 07:00 01/15/18 06:59 Acetaminophen/ Hydrocodone Bitart ([place] 5/325) 1 tab Q4H PRN ORAL Moderate Pain (Pain Scale 4-6) 12/16/17 07:00 12/23/17 06:59 12/20/17 06:01 Albuterol/ Ipratropium (Albuterol/ Ipratropium) 3 ml Q4H PRN HHN Shortness of Breath 12/16/17 07:00 12/21/17 06:59 Amlodipine Besylate (Norvasc) 5 mg DAILY ORAL 12/16/17 09:00 01/15/18 08:59 12/20/17 08:38 Atorvastatin Calcium (Lipitor) 40 mg BEDTIME ORAL 12/16/17 21:00 01/15/18 20:59 12/19/17 20:31 Levothyroxine Sodium (Synthroid) 75 mcg ACBREAKFAST ORAL 12/17/17 06:30 01/16/18 06:29 12/20/17 06:00 Morphine Sulfate (Morphine Sulfate) 6 mg Q3H PRN IVP Severe Pain (Pain Scale 7-10) 12/18/17 12:30 12/25/17 12:29 12/19/17 06:42 Ondansetron HCl (Zofran) 4 mg Q4H PRN IVP Nausea & Vomiting 12/16/17 07:00 01/15/18 06:59 Risperidone (RisperDAL) 2 mg BEDTIME ORAL 12/16/17 21:00 01/15/18 20:59 12/19/17 20:31 Sertraline HCl (Zoloft) 100 mg DAILY ORAL 12/16/17 13:00 01/15/18 12:59 12/20/17 08:38 Regla Carlin MD Dec 20, 2017 13:00
[2017-12-20 16:00] VITALS: BP 123/63
[2017-12-20] MEDS ORDERED: DUONEB 0.5-3(2.53 ML HHN (16:49)
[2017-12-20 20:00] VITALS: BP 130/70
[2017-12-20] MEDS: Atorvastatin 20mg tab ORAL SCH (20:21)
--- NOTE | 2017-12-22 08:20 | Discharge Summary ---
Discharge Summary Discharge Summary _ DATE OF ADMISSION: 12/15/2017 DATE OF DISCHARGE: 12/20/2017 REASON FOR ADMISSION: 57 years old female with past medical history significant for hypertension, morbid obesity, obstructive sleep apnea, schizophrenia, presented after recent fall with right lower leg pain and difficulty breathing. Patient reported increased pain with movement. No numbness or tingling in the right lower extremity Upon evaluation vital signs were stable Patient was placed on supplemental oxygen via nasal cannula ; pulse oximetry was stable. Chest x-ray revealed no acute cardiopulmonary pathology. Ankle x-ray revealed right distal fibula fracture Laboratory workup revealed no leukocytosis, stable hemoglobin and hematocrit, stable electrolytes and renal parameters. Platelet count 67. Patient admitted with diagnosis of acute right fibula fracture ,COPD ,morbid obesity, thrombocytopenia, bipolar disorder, hypertension. CONSULTANTS: pulmonary Dr. Carlin microscopist/oncologist Dr. Pedraza ortho surgery psychiatrist [facility] COURSE: Patient admitted. Orthopedic surgeon seen and evaluated the patient. According to surgeon, patient had nondisplaced fibular fracture. Patient was In a well padded splint, well fitted. No surgical treatment necessary at this time. Cast immobilization required for 4 weeks. Orthopedic surgeon recommended to follow-up with ortho surgeon per patient' s insurance for further management. Pain management provided. Pain was addressed. Supplemental oxygen and pulmonary toilet provided as needed . [employer] Supervisor closely followed. Pulse oximetry eventually was stable on room air , no evidence of COPD exacerbation. Erp Consultant seen the patient for initial thrombocytopenia. Platelet count was closely monitored. Hepatitis panel and HIV test were negative. Ultrasound of the abdomen revealed hepatosplenomegaly and prominent common bile duct. Platelets prior to discharge 192. Blood pressure was managed with calcium channel mansoor and remained stable. Statin was continued. Home medications resumed. Psychiatrist seen and evaluated patient . Patient was placed on Zoloft. Reality orientation and supportive therapy provided. Patient was encouraged to have formal sleep study as outpatient Patient was stable for discharge to assisted living FINAL DIAGNOSES: Acute nondisplaced right distal fibula fracture COPD Thrombocytopenia Morbid obesity Bipolar disorder Schizophrenia Sleep apnea Hypertension Hypercholesterolemia DISCHARGE MEDICATIONS: See Medication Reconciliation list. DISCHARGE INSTRUCTIONS: Patient was discharged to assisted living Follow-up with primary primary care provider with referral to orthopedic surgeon per insurance for further management . Reinforced to the patient need for cast immobilization for 4 weeks I have been assigned to dictate discharge summary for this account. I was not involved in the patient's management. Maria Elena Mann NP Dec 22, 2017 08:20
--- NOTE | 2017-12-22 10:00 | Cardiology Report ---
APPROVED REPORT EXAM: Two-dimensional and M-mode echocardiogram with Doppler and color Doppler. INDICATION PRE-OP M-Mode DIMENSIONS IVSd1.7 (0.7-1.1cm)Left Atrium (MM)5.6 (1.6-4.0cm) LVDd5.8 (3.5-5.6cm)Aortic Root3.6 (2.0-3.7cm) PWd2.0 (0.7-1.1cm)Aortic Cusp Exc.2.0 (1.5-2.0cm) IVSs2.1 cm LVDs3.8 (2.5-4.0cm) PWs1.9 cm Technically difficult study due to pts body habituts . Normal left ventricular chamber size, systolic function and wall motion to extent visualized. Left ventricular ejection fraction estimated to be 55-60 %. Mild left ventricular hypertrophy by 2-D. No evidence of pericardial effusion. Mild left atrial enlargements . Right cardiac chamber sizes are within normal limits. Focal aortic valve sclerosis with adequate cusp excursion. Thickened mitral valve leaflets with normal excursion. Mitral annulus and aortic root calcification. Pulmonic valve not well visualized. Normal tricuspid valve structure. IVC dilated at 2.6 cm without physiologic collapse suggestive of increased RA pressure. A color flow and spectral Doppler study was performed and revealed: No aortic regurgitation. Mild mitral regurgitation. Mitral diastolic velocities suggest reduced left ventricular relaxation c/w mild LV diastolic dysfunction (Grade I ). Mild, tricuspid regurgitation. Tricuspid systolic velocities suggests peak right ventricular systolic pressure of 45 mmHg consistent with mild pulmonary hypertension. No Pulmonic regurgitation present.
== END 2017-12-20 23:38 | DRG 342 ==
LOC: EDBD 21:28 → EMR 22:43 → 3E 23:59 → EDBEDREQ 12-16 00:35
PROC: 5A09357 Assistance with Respiratory Ventilation, Less than 24 Consecutive Hours, Continuous Positive Airway Pressure (ICD-10-PCS; principal; 2017-12-17)
DX: S82.831A Other fracture of upper and lower end of right fibula, initial encounter for closed fracture (principal); D69.6 Thrombocytopenia, unspecified; E66.01 Morbid (severe) obesity due to excess calories; F20.9 Schizophrenia, unspecified; Z68.43 Body mass index [BMI] 50.0-59.9, adult; E86.0 Dehydration; W19.XXXA Unspecified fall, initial encounter; Y92.099 Unspecified place in other non-institutional residence as the place of occurrence of the external cause; E03.9 Hypothyroidism, unspecified; E78.00 Pure hypercholesterolemia, unspecified; I10 Essential (primary) hypertension; F31.89 Other bipolar disorder; F99 Mental disorder, not otherwise specified; J44.9 Chronic obstructive pulmonary disease, unspecified; G47.30 Sleep apnea, unspecified
CPT/HCPCS: 36415; 71045; 76700; 80048; 80053; 83010; 83735; 84100; 84443; 85025; 85610; 85730; 86703; 86705; 86709; 86803; 86850; 86870; 86900; 86901; 87081; 87340; 93306; 94640; 94660; 94664; 94760; 99285; J7620